=== PATIENT | female | born 1995 | race Caucasian/White ===

== ENCOUNTER → 2018-01-17 18:48 | Outpatient (CLI) | payer OTHER, SELFPAY ==
[2018-01-17 20:37] LABS: Chlamydia Trachomatis by PCR Negative (Negative); Neisserai gonorrhoeae by PCR Negative (Negative); Probe Check PASS; Sample Adequacy Control PASS; Specimen Processing Control PASS
[2018-01-20 12:25] LABS: HPV Reflexed? NOT INDICATED
== END ==
PROVIDERS: Visit Provider Obstetrics & Gynecology
DX: Z01.419 Encounter for gynecological examination (general) (routine) without abnormal findings (principal); Z12.4 Encounter for screening for malignant neoplasm of cervix
CPT/HCPCS: 87491; 87591; 88175; G0145

== ENCOUNTER → 2018-01-25 07:41 | Outpatient (CLI) | payer OTHER, SELFPAY ==
[2018-01-25 09:23] LABS: Insulin 11.9 mU/L (2.6-37.6); Progesterone Level 0.52 ng/mL (See Comment); Vitamin D,25 Hydroxy 19.2 ng/mL (29.95-100.01)
[2018-01-25 09:25] LABS: Estradiol 19.5 pg/mL; Glucose 88 mg/dL (74-106); Prolactin 10.5 ng/mL; Thyroid Stim Hormone (TSH) 1.39 uIU/mL (0.358-3.74)
[2018-01-26 04:09] LABS: DHEA Sulfate 334.4 ug/dL (110.0-431.7)
[2018-01-26 09:20] LABS: Sex Hormone-binding Globulin 47.5 nmol/L (24.6-122.0)
[2018-01-28 11:51] LABS: 17-Hydroxyprogesterone 36 ng/dL (.)
== END ==
PROVIDERS: Visit Provider Obstetrics & Gynecology
DX: L68.0 Hirsutism (principal)
CPT/HCPCS: 36415; 82306; 82533; 82627; 82670; 82947; 83001; 83498; 83525; 84144; 84146; 84270; 84403; 84439; 84443; 84480; 82626

== ENCOUNTER → 2018-03-17 15:57 | Outpatient (CLI) | payer OTHER, SELFPAY ==
[2018-03-17 17:16] LABS: Progesterone Level 6.51 ng/mL (See Comment)
== END ==
PROVIDERS: Visit Provider Obstetrics & Gynecology
DX: E28.2 Polycystic ovarian syndrome (principal)
CPT/HCPCS: 36415; 84144

== ENCOUNTER → 2018-07-03 09:55 | Outpatient (CLI) | payer OTHER, SELFPAY ==
[2018-07-03 13:54] LABS: Vitamin D,25 Hydroxy 48.1 ng/mL (29.95-100.01)
[2018-07-04 11:41] LABS: DHEA Sulfate 375.7 ug/dL (110.0-431.7)
== END ==
PROVIDERS: Visit Provider Obstetrics & Gynecology
DX: E28.2 Polycystic ovarian syndrome (principal); L68.0 Hirsutism
CPT/HCPCS: 36415; 82306; 82627; 82626

== ENCOUNTER → 2018-10-10 09:17 | Outpatient (CLI) | payer OTHER, SELFPAY ==
[2018-10-10 11:02] LABS: Insulin 6.1 mU/L (2.6-37.6); Progesterone Level 2.48 ng/mL (See Comment)
--- OUTSIDE RECORDS SUMMARY | 2018-12-12 10:03 | XMS RPT_ITS ---
:1995 Author Organization OHIP Support Name Relationship Address Phone ROSA NEFF/SHARRON Unavailable [address] + [place] [phone] [employer] Unavailable [address] + [address] Unavailable Unavailable Unavailable ROSA NEFF Unavailable Unavailable + AISHWARYAROSA HENDERSON Unavailable Unavailable + ROSA NEFF Unavailable Unavailable + NOT GIVEN Unavailable [address] + [place] [address] [facility] Unavailable Unavailable Unavailable ROSA NEFF Unavailable Unavailable + AISHWARYAROSA HENDERSON Unavailable Unavailable + AISHWARYAROSA/SHARRON Unavailable [address] + [place] [phone] [employer] Unavailable [address] + [place] [phone] ROSA NEFF/SHARRON Unavailable [address] + [place] [phone] [employer] Unavailable [address] + [place] [address] ROSA NEFF/SHARRON Unavailable [address] [phone] [place] [address] [employer] Unavailable [address] + [place] [address] AISHWARYAROSA HENDERSON/SHARRON Unavailable [address] + [place] [phone] [employer] Unavailable [address] + [place] [address] [facility] Unavailable Unavailable Unavailable ROSA NEFF Unavailable Unavailable + ROSA NEFF Unavailable Unavailable + Care Team Providers Name Role Phone Dr. Neema Potter Admitting Unavailable [place], Dr. Neema Oquendo Attending Unavailable ABBEY NEEMA LAKSHMI Attending Unavailable ABBEY NEEMA MARTINS Primary Care Unavailable ABBEY NEEMA MARTINS Attending Unavailable ABBEY NEEMA MARTINS Primary Care Unavailable TINA CHÁVEZ Attending Unavailable ABBEYNEEMA Primary Care Unavailable Singh-Ari, Summer Attending Unavailable Singh-Ari, Summer Attending Unavailable Singh-Ari, Summer Attending Unavailable Singh-Ari, Summer Referring Unavailable RADHA BEE Primary Care Unavailable Singh-Ari, Summer Attending Unavailable Singh-Ari, Summer Attending Unavailable PROBLEMS PROBLEMS DATE TYPE CONDITION / CODE ATTENDING STATUS SOURCE 09/04/2018 Admitting Obesity, NEEMA POTTER [facility] diagnosis unspecified / [place] E66.9(ICD-10) Repository 09/04/2018 Admitting Body mass index NEEMA POTTER [facility] diagnosis (bmi) 33.0-33.9, [place] adult / Repository Z68.33(ICD-10) 09/04/2018 Admitting Encounter for NEEMA POTTER [facility] diagnosis general adult [place] medical examination Repository without abnormal findings / Z00.00(ICD-10) 09/04/2018 Admitting Encounter for NEEMA POTTER [facility] diagnosis immunization / [place] Z23(ICD-10) Repository 07/03/2018 Unknown E28.2 - Polycystic Singh-Ari, Active [place] ovarian syndrome / [facility] E28.2(ICD-10) Hospital Repository 07/03/2018 Unknown L68.0 - Hirsutism / Singh-Ari, Active [place] L68.0(ICD-10) [facility] Hospital Repository 06/27/2018 Unknown Z01.419 - Encounter Singh-Ari, Active [place] for gynecological [facility] (general) (routine) Repository without abnormal findings / Z01.419(ICD-10) 12/26/2017 Admitting Dizziness and CRONEEMA SHAY [facility] diagnosis giddiness / [place] R42(ICD-10) Repository PROCEDURES PROCEDURES No Procedure Records FoundRESULTS RESULTS PROGESTERONE LEVEL Collected: 10/10/2018 Status: F Source: [place] 9:24 AM [facility] REPOSITORY TYPE CODE TESTS RESULT OUT OF REFERENCE UNITS RANGE LAB L509.4001 See Comment ng/mL Progesterone Normal 2.48 Result Comment: Progesterone Reference Table: UNITS Female: Follicular 0.15 - 1.40 ng/mL Luteal 3.34 - 25.56 ng/mL Mid-luteal 4.44 - 28.03 ng/mL Postmenopausal 0.0 - 0.73 ng/mL : 1st Trimester 11.22 - 90.00 ng/mL 2nd Trimester 25.55 - 89.40 ng/mL 3rd Trimester 48.40 -422.50 ng/mL Performed By: #### L509.4001, [id number] #### [facility] [address] [place], [place], [address] INSULIN Collected: 10/10/2018 Status: F Source: [place] 9:24 AM [facility] REPOSITORY TYPE CODE TESTS RESULT OUT OF RANGE REFERENCE UNITS LAB [id number] 2.6-37.6 mU/L Normal Insulin 6.1 Result Comment: Please Note: INSULIN METHOD AND REFERENCE RANGE CHANGE Effective 09/29/2017. Performed By: #### L509.4001, [id number] #### [place] [facility] [address] [place], [place], [address] VITAMIN D,25 HYDROXY Collected: 07/03/2018 Status: F Source: [place] 9:58 AM [facility] REPOSITORY TYPE CODE TESTS RESULT OUT OF RANGE REFERENCE UNITS LAB L506.1000 29.95-100.01 ng/mL Normal Vitamin D 48.1 25-OH Result Comment: Vitamin D 25(OH) Status Range Deficiency <20 ng/mL (50nmol/L) Insuffciency 20 - 30 ng/mL (50 - 75 nmol/L) Sufficiency 30 - 100 ng/mL (75 - 250 nmol/L) Toxicity >100 ng/mL (>250 nmol/L) Performed By: #### L506.1000 #### [facility] [address] [place], [address] DHEA SULFATE Collected: 07/03/2018 Status: F Source: [place] 9:58 AM [facility] REPOSITORY Order Comment: Has Patient had Radioactive Injection for X-ray?: N TYPE CODE TESTS RESULT OUT OF RANGE REFERENCE UNITS LAB L3300.1500 110.0-431.7 ug/dL Normal DHEA SULF 375.7 4020 Result Comment: Performed at: [facility] [id number] Table Cut Off Saw Operator: Nato Dick PhD, Phone: [phone] Performed By: #### L3300.1500 #### [facility] (refer to report for specific site) refer to report for address and phone number PROGESTERONE LEVEL Collected: 03/17/2018 Status: F Source: [place] 3:59 PM [facility] REPOSITORY Order Comment: TODAY IS CYCLE DAY 21 TYPE CODE TESTS RESULT OUT OF REFERENCE UNITS RANGE LAB L509.4001 See Comment ng/mL Progesterone Normal 6.51 Result Comment: Progesterone Reference Table: UNITS Female: Follicular 0.15 - 1.40 ng/mL Luteal 3.34 - 25.56 ng/mL Mid-luteal 4.44 - 28.03 ng/mL Postmenopausal 0.0 - 0.73 ng/mL : 1st Trimester 11.22 - 90.00 ng/mL 2nd Trimester 25.55 - 89.40 ng/mL 3rd Trimester 48.40 -422.50 ng/mL Performed By: #### L509.4001 #### [facility] [address] [facility]. [place], [place], [address] T3 TOTAL - TRIIODOTHYRONINE Collected: 01/25/2018 Status: F Source: [place] 7:56 AM [facility] REPOSITORY TYPE CODE TESTS RESULT OUT OF RANGE REFERENCE UNITS LAB L501.9186 0.6-1.81 ng/mL Normal T3 Total 1.30 Performed By: #### L501.9186, L506.1000, L509.3000, L509.4001, L509.6000, [id number] #### [facility] [address] [facility] [place], [address] VITAMIN D,25 HYDROXY Collected: 01/25/2018 Status: F Source: [place] 7:56 AM [facility] REPOSITORY TYPE CODE TESTS RESULT OUT OF REFERENCE UNITS RANGE LAB L506.1000 29.95-100.01 ng/mL Low Vitamin D 19.2 25-OH Result Comment: Vitamin D 25(OH) Status Range Deficiency <20 ng/mL (50nmol/L) Insuffciency 20 - 30 ng/mL (50 - 75 nmol/L) Sufficiency 30 - 100 ng/mL (75 - 250 nmol/L) Toxicity >100 ng/mL (>250 nmol/L) Performed By: #### L501.9186, L506.1000, L509.3000, L509.4001, L509.6000, [id number] #### [facility] [address] [place], [place], [address] TESTOSTERONE, SERUM TOTAL Collected: 01/25/2018 Status: F Source: [place] 7:56 [facility] REPOSITORY TYPE CODE TESTS RESULT OUT OF REFERENCE UNITS RANGE LAB L509.3000 ng/dL Testosterone Normal 23.71 Result Comment: NORMAL REFERENCE RANGES MALE AGE <50 123.06 - 813.86 ng/dL MALE AGE >50 89.98 - 780.10 ng/dL FEMALE PREMENOPAUSE AGE 21 - 60 9.01 - 47.94 ng/dL FEMALE POSTMENOPAUSE AGE 45 - 89 <7.00 - 45.62 ng/dL REFERENCE RANGE AND METHODOLOGY CHANGED 09/07/2017 Performed By: #### L501.9186, L506.1000, L509.3000, L509.4001, L509.6000, [id number] #### [facility] [address] [place], [address] PROGESTERONE LEVEL Collected: 01/25/2018 Status: F Source: [place] 7:56 [facility] REPOSITORY TYPE CODE TESTS RESULT OUT OF REFERENCE UNITS RANGE LAB L509.4001 See Comment ng/mL Progesterone Normal 0.52 Result Comment: Progesterone Reference Table: UNITS Female: Follicular 0.15 - 1.40 ng/mL Luteal 3.34 - 25.56 ng/mL Mid-luteal 4.44 - 28.03 ng/mL Postmenopausal 0.0 - 0.73 ng/mL : 1st Trimester 11.22 - 90.00 ng/mL 2nd Trimester 25.55 - 89.40 ng/mL 3rd Trimester 48.40 -422.50 ng/mL Performed By: #### L501.9186, L506.1000, L509.3000, L509.4001, L509.6000, [id number] #### [facility] [address] [place], [address] CORTISOL SERUM Collected: 01/25/2018 Status: F Source: [place] 7:56 AM [facility] REPOSITORY TYPE CODE TESTS RESULT OUT OF RANGE REFERENCE UNITS LAB L509.6000 3.09-22.40 ug/dL Normal CORTISOL 13.60 Result Comment: Adult (AM) 4.30 - 22.40 ug/dL Adult (PM) 3.09 - 16.66 ug/dL Performed By: #### L501.9186, L506.1000, L509.3000, L509.4001, L509.6000, [id number] #### [facility] [address] [place], [place], [address] INSULIN Collected: 01/25/2018 Status: F Source: [place] 7:56 AM [facility] REPOSITORY TYPE CODE TESTS RESULT OUT OF RANGE REFERENCE UNITS LAB [id number] 2.6-37.6 mU/L Normal Insulin 11.9 Result Comment: Please Note: INSULIN METHOD AND REFERENCE RANGE CHANGE Effective 09/29/2017. Performed By: #### L501.9186, L506.1000, L509.3000, L509.4001, L509.6000, [id number] #### [facility] [address] [place], [address] GLUCOSE Collected: 01/25/2018 Status: F Source: [place] 7:56 AM [facility] REPOSITORY TYPE CODE TESTS RESULT OUT OF RANGE REFERENCE UNITS LAB L501.0100 74-106 mg/dL Normal GLU 88 Result Comment: Please note revised GLUCOSE reference range effective 2017. Performed By: #### L501.0100, L501.9520, L506.0400, L3100.5125, L3100.5420, L3300.1750 #### [facility] [address] [place], [address] THYROID STIM HORMONE Collected: 01/25/2018 Status: F Source: [place] (TSH) 7:56 AM [facility] REPOSITORY TYPE CODE TESTS RESULT OUT OF RANGE REFERENCE UNITS LAB L501.9520 0.358-3.74 uIU/mL Normal TSH 1.39 Performed By: #### L501.0100, L501.9520, L506.0400, L3100.5125, L3100.5420, L3300.1750 #### [facility] [address] [place], [place], [address] T4 FREE DIRECT Collected: 01/25/2018 Status: F Source: [place] 7:56 AM [facility] REPOSITORY TYPE CODE TESTS RESULT OUT OF RANGE REFERENCE UNITS LAB L506.0400 0.76-1.46 ng/dL Normal T4 FREE 1.00 DIRECT Performed By: #### L501.0100, L501.9520, L506.0400, L3100.5125, L3100.5420, L3300.1750 #### [facility] [address] [place], [place], [address] FOLLICLE STIMULATING Collected: 01/25/2018 Status: F Source: [place] HORMONE 7:56 AM [facility] REPOSITORY TYPE CODE TESTS RESULT OUT OF RANGE REFERENCE UNITS LAB L3100.5125 mIU/mL Normal FSH 4.0 Result Comment: NORMAL REFERENCE RANGES FEMALE FOLLICULAR 2.3 - 12.6 mIU/mL MID-CYCLE PEAK 5.2 - 17.5 mIU/mL LUTEAL 1.7 - 12.9 mIU/mL POST-MENOPAUSAL ON MHT 5.9 - 72.8 mIU/mL NOT ON MHT 12.7 - 132.2 mlU/mL MALE 0.7 - 10.8 mIU/mL NEW TEST METHOD AND REFERENCE RANGES FEBRUARY 07, 2012 Performed By: #### L501.0100, L501.9520, L506.0400, L3100.5125, L3100.5420, L3300.1750 #### [facility] [address] [place], [address] PROLACTIN Collected: 01/25/2018 Status: F Source: [place] 7:56 AM [facility] REPOSITORY TYPE CODE TESTS RESULT OUT OF RANGE REFERENCE UNITS LAB L3100.5420 ng/mL Normal PROLACTIN 10.5 Result Comment: NORMAL REFERENCE RANGES FEMALE NON- 2.2 - 30.3 ng/mL 8.1 - 347.6 ng/mL POST-MENOPAUSAL 0.7 - 31.5 ng/mL MALE 2.5 - 17.4 ng/mL NEW TEST METHOD AND REFERENCE RANGES FEBRUARY 07, 2012 Performed By: #### L501.0100, L501.9520, L506.0400, L3100.5125, L3100.5420, L3300.1750 #### [facility] [address] [place], [place], [address] ESTRADIOL Collected: 01/25/2018 Status: F Source: [place] 7:56 AM [facility] REPOSITORY TYPE CODE TESTS RESULT OUT OF RANGE REFERENCE UNITS LAB L3300.1750 pg/mL Normal ESTRADIOL 19.5 Result Comment: NORMAL REFERENCE RANGES FEMALE FOLLICULAR 21.4 - 164.8 pg/mL MID-CYCLE PEAK 49.9 - 367.2 pg/mL LUTEAL 40.2 - 259.0 pg/mL POST-MENOPAUSAL ON MHT <11.0 - 462.1 pg/mL NOT ON MHT <11.0 - 58.3 pg/mL MALE <11.0 - 52.5 pg/mL NOTE: [facility] HAS CONFIRMED THE DRUG FULVETRANT (FASLODEX) MAY CAUSE FALSELY ELEVATED ESTRADIOL RESULTS WHEN USING THIS TEST METHOD. IF PATIENT IS TAKING FULVESTRANT AN ALTERNATIVE METHOD SHOULD BE USED TO DETERMINE ESTRADIOL CONCENTRATION. Performed By: #### L501.0100, L501.9520, L506.0400, L3100.5125, L3100.5420, L3300.1750 #### [facility] [address] [place], [place], [address] SEX HORMONE-BINDING Collected: 01/25/2018 Status: F Source: [place] GLOBULIN 7:56 AM [facility] REPOSITORY Order Comment: Has Patient had Radioactive Injection for X-ray?: N TYPE CODE TESTS RESULT OUT OF RANGE REFERENCE UNITS LAB L3100.5060 24.6-122.0 nmol/L Normal SHBG 47.5 Result Comment: Performed at: [facility] [address] [id number] Table Cut Off Saw Operator: Nato Dick PhD, Phone: [phone] Performed By: #### L3100.5060, L3300.1500 #### [facility] (refer to report for specific site) refer to report for address and phone number DHEA SULFATE Collected: 01/25/2018 Status: F Source: [place] 7:56 AM [facility] REPOSITORY Order Comment: Has Patient had Radioactive Injection for X-ray?: N TYPE CODE TESTS RESULT OUT OF RANGE REFERENCE UNITS LAB L3300.1500 110.0-431.7 ug/dL Normal DHEA SULF 334.4 4020 Performed By: #### L3100.5060, L3300.1500 #### [facility] (refer to report for specific site) refer to report for address and phone number [phone] Collected: Status: F Source: [place] 01/25/2018 7:56 AM [facility] REPOSITORY Order Comment: Has Patient had Radioactive Injection for X-ray?: N TYPE CODE TESTS RESULT OUT OF RANGE REFERENCE UNITS LAB L3100.9000 . ng/dL Normal HYDROXPROG 17 36 Result Comment: Adult Female Follicular 15 - 70 Luteal 35 - 290 This test was developed and its performance characteristics determined by [facility]. It has not been cleared or approved by the Food and Drug Administration. Performed at: [address] [id number] Table Cut Off Saw Operator: Dylan Kemp MD, Phone: [phone] Performed By: #### L3100.9000 #### [facility] (refer to report for specific site) refer to report for address and phone number CT/NG WCH BY PCR Collected: 01/17/2018 Status: F Source: [place] 4:00 PM [facility] REPOSITORY TYPE CODE TESTS RESULT OUT OF RANGE REFERENCE UNITS LAB L8200.2100 Negative Normal Chlam Negative Trac PCR LAB L8200.2200 Negative Normal NG by Negative PCR Performed By: #### L8200.1999 #### [facility] [address] [place], [address] PAP I-G W/RFX Collected: 01/17/2018 Status: F Source: [place] HRHPV-APTIMA 4:00 PM [facility] REPOSITORY Order Comment: CYTOLOGY INFORMATION: - CLINICAL INFORMATION: - DATE LMP/MENOPAUSE: LMP 12/22/17 - COLLECTION VIAL: Thin Prep Vial - PROCESSING ASSISTANT SOURCE: CERVICAL/ENDOCERVICAL - COLLECTION TECHNIQUE: BRUSH/SPATULA Specimen Comment: [id number] Specimen Comment: No. of containers..01 ThinPrep Vial TYPE CODE TESTS RESULT OUT OF RANGE REFERENCE UNITS LAB L7400.0800 . Normal DIAGN Comment Result Comment: NEGATIVE FOR INTRAEPITHELIAL LESION AND MALIGNANCY. LAB L7400.0900 . Normal ADEQ Comment Result Comment: Satisfactory for evaluation. Endocervical and/or squamous metaplastic cells (endocervical component) are present. LAB L7400.1400 . Normal PERFORM Comment Result Comment: Khoa Feliz Agricultural Service Technician (ASCP) LAB L7400.2575 . Normal TEST METHOD Comment Result Comment: This liquid based ThinPrep(R) pap test was screened with the use of an image guided system. LAB L7400.2600 . Normal . COMM LAB L7400.2700 . Normal PAPSMR Comment Result Comment: The Pap smear is a screening test designed to aid in the detection of premalignant and malignant conditions of the uterine cervix. It is not a diagnostic procedure and should not be used as the sole means of detecting cervical cancer. Both false-positive and false-negative reports do occur. LAB L7400.2800 . Normal HPV RFLX Comment Result Comment: The HPV DNA reflex criteria were not met with this specimen result therefore, no HPV testing was performed. Performed at: [facility] [id number] Table Cut Off Saw Operator: Stephanie Elena MD, Phone: [phone] Performed By: #### L7400.0353 #### [facility] (refer to report for specific site) refer to report for address and phone number ALLERGIES ALLERGIES DATE TYPE / CODE NAME / CODE REACTION SEVERITY SOURCE Drug NO KNOWN [facility] Class/35397 ALLERGIES Repository 1003(SNOMED CT) ENCOUNTERS ENCOUNTERS ADMIT/DISCHARGE ACCOUNT NUMBER ADMITTING ENCOUNTER LOCATION SOURCE CLASS 10/10/2018 [id number] Ambulatory [facility] ding:WOBLAB Repository 09/26/2018 [id number] Ambulatory Building:[facility] PCPWMAINST Three Repository 09/04/[id number] [place] Ambulatory [facility] Repository 09/04/2018/09/04/20 [id number] Ambulatory Building:[facility] [place] [address] PCPWMAINST Three Repository 07/03/2018 [id number] Ambulatory [facility] ding:WOBLAB Repository 03/17/2018 [id number] Ambulatory [facility] ding:WOBLAB Repository 01/25/2018 [id number] Ambulatory [facility] ding:LAB Repository 01/17/2018 [id number] [facility] ding:LABSPEC Repository 12/26/2017/12/27/19 [id number] Ambulatory Building:[place] [address] PCPSTRIMBLE Three Repository PAYERS PAYERS ENCOUNTER GUARANTOR PAYER SUBSCRIBER SOURCE 10/10/2018 BENNY Hoover Primary Rosa KinseyDOB: [place] [id number] TR Insurance:COMMERCIAL [id number] [address] [facility] [place], [place] [address]Qxu: [id number] Repository Date:2534-46-97BQ [address]OX ([address]) [address] [address]TU: 10/10/2018 Secondary NOT GIVENUNK [place] Insurance:SELF PAY [facility] Number: Effective Repository Date:2018-10-10 09/26/2018 BENNY NEFF Primary ROSA KINSEYDOB: [facility] IDOB: Insurance:OPTIMAPolic [id number] Three Repository TW y Number: [address] [id number] [address] [place] [address] Date:9781-96-09[place] [address] [place], [place] [address]Woh: [address] [address]WP: [phone]) (ZS) [phone] 09/04/2018 BENNY NEFF Primary ROSA KINSEYDOB: [facility] IDOB: Insurance:OPTIMAPolic [id number] Three Repository [facility] y Number: [address] RD RD [id number] [address] [place] [address] Date:3404-59-93VM [facility] [place] [address] , [place] [address]Oty: [address] [address]WP: [phone] 07/03/2018 BENNY I Primary Rosa KinseyDOB: [place] [id number] TR Insurance:COMMERCIAL [id number] [address] OTHERPolicy Number: [facility] , [place] [address]Qzm: [id number] Repository Date:2744-13-18QR [address]OX (HP) [address] [address]HN: 07/03/2018 Secondary NOT GIVENUNK [place] Insurance:SELF PAY [facility] Number: Effective Repository Date:2018-07-03 03/17/2018 BENNY I Primary Rosa KinseyDOB: [place] [id number] TR Insurance:COMMERCIAL [id number] [address] OTHERPolicy Number: [facility] , [place] [address]Psg: [id number] Repository Date:2290-27-11IQ [address] ([address]) [address] [address]BS: 03/17/2018 Secondary NOT GIVENUNK [place] Insurance:SELF PAY [facility] Number: Effective Repository Date:2018-03-17 01/25/2018 BENNY I Primary Rosa KinseyDOB: [place] [id number] TR Insurance:COMMERCIAL [id number] [address] [facility] , [place] [address]Qqg: [id number] Repository Date:6274-67-17RI [address] ([address]) [address] [place] [address]MQ: 01/25/2018 Secondary NOT GIVENUNK [place] Insurance:SELF PAY [facility] Number: Effective Repository Date:2018-01-25 01/17/2018 BENNY I Primary Rosa KinseyDOB: [place] [id number] TR Insurance:CBCA [id number] [address] , [place] [address]Bmk: NETWORKPolicy Number: Repository [id number] () Date:3580-38-50[address] [address], [place] [address]CB: 01/17/2018 Secondary Rosa KinseyDOB: [place] Insurance:COMMERCIAL [id number] [facility] OTHERPolicy Number: Hospital [id number] Repository Date:3020-40-16[address], [place] [address]RN: 01/17/2018 Tertiary NOT GIVENUNK [place] Insurance:SELF PAY [facility]: Effective Repository Date:2018-01-17 12/26/2017 BENNY AYERSEY [facility] IDOB: Insurance:OPTIMAPolic [id number] Three Repository TWP y Number: TWP RD RD [id number] [address] [place] [address] Date:4083-00-59FO [facility] [address] , [place] [id number], [place] [address]OG:
--- OUTSIDE RECORDS SUMMARY | 2018-12-12 10:03 | XMS RPT_ITS | Summary of Care ---
:1995 Author Organization [facility] Address [address] [place] [address] Care Team Providers Name Role Phone Gabriel Potter MD Primary Care Provider Reason for Visit Reason Comments other wellness Encounter Details Date Type Department Care Team Description 09/04/2018 Office Visit [facility] Primary Gabriel Potter Well adult exam (Primary Dx); Care Physicians MD Bobby Class 1 obesity without serious comorbidity with body mass index (BMI) of 33.0 to 33.9 in adult, unspecified obesity type; [address] [facility] [place] [id number] Allergies No Known Allergiesas of this encounter Medications Prescription Sig. Disp. Refills Start Date End Date Status meclizine Take 1 (one) tablet 60 tablet 1 12/26/2017 12/26/2018 Active (ANTIVERT) 12.5 mg (12.5 mg total) by tabletIndications: mouth 3 (three) Vertigo times a day as needed for nausea. ergocalciferol, Take 1,000 Units by Active vitamin D2, mouth . (VITAMIN D2 ORAL) diptheria, tetanus Sign this order in 1 mL 0 09/04/2018 09/04/2018 Active toxoid, acellular conjunction with pertusssis (ADACEL) the immunization 2 Lf-(2.5-5-3-5 order to satisfy [place] mcg)-5Lf/0.5 mL Board of Pharmacy injectionIndication Positive ID s: Need for Tdap requirements for vaccination immunization orders . as of this encounter Active Problems Problem Noted Date Obesity 09/04/2018 Last Assessment & Plan: Discussed elevated Body Mass Index (BMI): Advised regular exercise. Discussed elevated Body Mass Index (BMI): Advised healthy and appropriate diet. Rationale: Overweight (Findings) BMI Polycystic ovarian syndrome 07/03/2018 Vertigo 12/26/2017 Last Assessment & Plan: Monitor stress, try OTC decongestant, and use meclizine as needed for symptom control. Anxiety State 03/02/2013 Overview: Overview: This term is a replacement for an inactive term Immunizations Name Dates Previously Given Next Due DTaP 03/15/2001, 05/29/1997, 05/30/1996, 03/28/1996, 01/25/1996 HPV Quadrivalent (Gardasil) 11/21/2009, 05/28/2009, 03/27/2009 Hepatitis B 11/07/1996, 01/25/1996, 1995 Hib (PRP-T) 03/27/1997, 05/30/1996, 03/28/1996, 01/25/1996 Influenza, Unspecified 05/28/2009 MMR 03/15/2001, 03/27/1997 Meningococcal Conjugate (MENACTRA) 03/02/2013, 03/27/2009 OPV 03/15/2001, 05/30/1996, 03/28/1996, 01/25/1996 Tdap 09/04/2018, 04/26/2008 Varicella (Varivax) 03/02/2013, 05/29/1997 as of this encounter Social History Tobacco Use Types Packs/Day Years Used Date Never Smoker Smokeless Tobacco: Never Used Alcohol Use Drinks/Week oz/Week Comments Yes 4x a year Sex Assigned at Date Recorded Not on file as of this encounter Last Filed Vital Signs Vital Sign Reading Time Taken Blood Pressure 123/76 09/04/2018 8:02 AM EST Pulse 56 09/04/2018 8:02 AM EST Temperature 36.8 ??C (98.2 ??F) 09/04/2018 8:02 AM EST Respiratory Rate - - Oxygen Saturation 99% 09/04/2018 8:02 AM EST Inhaled Oxygen Concentration - - Weight 92.7 kg (204 lb 6.4 oz) 09/04/2018 8:02 AM EST Height 166.4 cm (5' 5.5) 09/04/2018 8:02 AM EST Body Mass Index 33.5 09/04/2018 8:02 AM EST in this encounter Instructions Patient Instructions - Gabriel Potter MD - 09/04/2018 8:11 AM EST Formatting of this note may be different from the original. Problem List Items Addressed This Visit Unprioritized Obesity Discussed elevated Body Mass Index (BMI): Advised regular exercise. Discussed elevated Body Mass Index (BMI): Advised healthy and appropriate diet. Rationale: Overweight (Findings) BMI Other Visit Diagnoses Well adult exam - Primary Need for Tdap vaccination Relevant Medications diptheria, tetanus toxoid, acellular pertusssis (ADACEL) 2 Lf-(2.5-5-3-5 mcg)- 5Lf/0.5 mL injection Other Relevant Orders Tdap vaccine greater than or equal to 7yo IM in this encounter Progress Notes Gabriel Potter MD - 09/04/2018 8:10 AM ESTFormatting of this note may be different from the original. OUTPATIENT WELL WOMAN PROGRESS NOTE Subjective: Zahra Munoz is a 22 y.o. female and is here for a preventative care visit. Health Maintenance Due Topic Date Due ??? PAP SMEAR 1995 ??? TETANUS EVERY 10 YR 04/26/2018 ??? SEQUENTIAL INFLUENZA VACCINE (1) 05/20/2018 Last PAP Smear this year. - Done at OB in [place] Domestic violence: Feels safe, no concerns Depression Screen: Some, not really though. Diet/Exercise: Doing crossfit 4x a week, does skim milk, watches carb intake, no fast food or greasystuff, watches fruit and sugar intake Last eye exam: summer WN Last dental visit: Today, not been yet, goes biannually The following portions of the patient's history were reviewed and updated as appropriate: allergies,current medications, past family history, past medical history, past social history, past surgical history and problem list. Past Medical History: Diagnosis Date ??? PCOS (polycystic ovarian syndrome) Past Surgical History: Procedure Laterality Date ??? ANKLE SURGERY Right 2008 ??? WISDOM TOOTH EXTRACTION Social History Substance Use Topics ??? Smoking status: Never Smoker ??? Smokeless tobacco: Never Used ??? Alcohol use Yes Comment: 4x a year Family History Problem Relation Age of Onset ??? Cancer Paternal Aunt ??? Cancer Paternal Grandmother No Known Allergies Objective: BP 123/76 (BP Location: Left arm, Patient Position: Sitting, BP Cuff Size: Adult) Pulse (!) 56 Temp 98.2 ??F (36.8 ??C) (Oral) Ht 5' 5.5 Wt 92.7 kg (204 lb 6.4 oz) SpO2 99% BMI 33.50 kg/m?? Assessment: Healthy female exam.@ Plan: Problem List Items Addressed This Visit Unprioritized Obesity Discussed elevated Body Mass Index (BMI): Advised regular exercise. Discussed elevated Body Mass Index (BMI): Advised healthy and appropriate diet. Rationale: Overweight (Findings) BMI Other Visit Diagnoses Well adult exam - Primary General Patient Counseling Given: --Nutrition: Stressed importance of moderation in sodium/caffeine intake, saturated fat and cholesterol, caloric balance, sufficient intake of fresh fruits, vegetables, fiber, calcium, iron, and 1 mg of folate supplement per day (for females capable of ). --Discussed the daily use of baby aspirin. --Exercise: Stressed the importance of regular exercise. --Substance Abuse: Discussed cessation/primary prevention of tobacco, alcohol, or other drug use --Sexuality: Discussed sexually transmitted diseases, partner selection, use of condoms, avoidance of unintended and contraceptive alternatives. --Dental health: Discussed importance of regular dental visits. --Immunizations reviewed. --Discussed benefits of screening mammograms, pap smears, and colonoscopy. in this encounter Miscellaneous Notes Assessment & Plan Note - Gabriel Potter MD - 09/04/2018 8:26 AM ESTAssociated Problem(s): ObesityDiscussed elevated Body Mass Index (BMI): Advised regular exercise. Discussed elevated Body Mass Index (BMI): Advised healthy and appropriate diet. Rationale: Overweight (Findings) BMI in this encounter Plan of Treatment Upcoming Encounters Date Type Specialty Care Team Description 09/04/2019 Office Visit Primary Care Gabriel Potter MD [address] [place] [id number] [phone] Health Maintenance Due Date Last Done Comments PAP SMEAR 1995 TETANUS EVERY 10 YR 04/26/2018 04/26/2008 SEQUENTIAL INFLUENZA VACCINE (#1) 2018 05/28/2009 HPV VACCINES Completed 11/21/2009, 05/28/2009, 03/27/2009 as of this encounter Visit Diagnoses Diagnosis Well adult exam - Primary Routine general medical examination at a health care facility Class 1 obesity without serious comorbidity with body mass index (BMI) of 33.0 to 33.9 in adult, unspecified obesity type Need for Tdap vaccination Need for prophylactic vaccination with combined dregxmjyrf-djiclmr-mnefugzwm (DTP) vaccine
== END ==
PROVIDERS: Visit Provider Obstetrics & Gynecology
DX: L68.0 Hirsutism (principal)
CPT/HCPCS: 36415; 83525; 84144

== ENCOUNTER → 2019-04-27 14:02 | Outpatient (CLI) | payer OTHER, SELFPAY ==
[2019-04-27 14:14] LABS: Hematocrit 40.7 % (37-47); Hemoglobin 14.1 g/dL (12.0-15.0); Mean Corp Hgb Conc 34.6 g/dL (32-36); Mean Corpuscular Volume 92.3 fL (81-99); Platelet Count 280 K/mm3 (150-450); RBC Distribution Width CV 11.9 % (11.6-14.6); RBC Distribution Width SD 40.6 fl (35.1-43.9); Red Blood Count 4.41 M/mm3 (4.2-5.4); White Blood Count 5.8 K/mm3 (4.4-11.0)
[2019-04-27 14:24] LABS: ALB/GLOB Ratio 1.3 RATIO (0.9-2.4); AST(SGOT) 11 U/L (15-37); Alanine Aminotransfer ALT/SGPT 18 U/L (13-56); Albumin, Serum 4.2 g/dL (3.2-5.0); Alkaline Phosphatase 58 U/L (45-117); Anion Gap 5 (5-15); BUN 8 mg/dL (7-18); BUN/Creat Ratio 11.9 RATIO (10-20); Calcium,Total 9.1 mg/dL (8.5-10.1); Chloride 105 mmol/L (98-107); Creatinine, Serum 0.67 mg/dL (0.55-1.02); EST Glomerular Filtration Rate 115 mL/min (>60); Est Glom Filt Rate - Afr Amer 139 mL/min (>60); Globulin 3.2 g/dL (2.2-4.2); Glucose 90 mg/dL (74-106); Potassium 4.4 mmol/L (3.5-5.1); Protein, Total 7.4 g/dL (6.4-8.2); Sodium Level 139 mmol/L (136-145)
[2019-04-27 14:27] LABS: hCG Titer Quant., Serum 732 mIU/mL (1-3)
[2019-04-27 14:38] LABS: Progesterone Level 14.57 ng/mL (See Comment)
[2019-04-27 15:43] LABS: Chlamydia Trachomatis by PCR Negative (Negative); Neisserai gonorrhoeae by PCR Negative (Negative); Probe Check PASS; Sample Adequacy Control PASS; Specimen Processing Control PASS
== END ==
PROVIDERS: Visit Provider Obstetrics & Gynecology
DX: Z11.3 Encounter for screening for infections with a predominantly sexual mode of transmission (principal); Z32.01 Encounter for pregnancy test, result positive
CPT/HCPCS: 80053; 84144; 84702; 85027; 87491; 87591

== ENCOUNTER → 2019-04-29 10:31 | Outpatient (CLI) | payer OTHER, SELFPAY ==
[2019-04-29 11:34] LABS: hCG Titer Quant., Serum 948 mIU/mL (1-3)
== END ==
PROVIDERS: Visit Provider Obstetrics & Gynecology
DX: N91.2 Amenorrhea, unspecified (principal)
CPT/HCPCS: 36415; 84702

== ENCOUNTER → 2019-05-01 11:32 | Outpatient (CLI) | payer OTHER, SELFPAY ==
[2019-05-01 13:21] LABS: hCG Titer Quant., Serum 1147 mIU/mL (1-3)
== END ==
PROVIDERS: Referring Provider Obstetrics & Gynecology; Visit Provider Obstetrics & Gynecology
DX: N91.2 Amenorrhea, unspecified (principal)
CPT/HCPCS: 36415; 84702

== ENCOUNTER → 2019-05-14 13:27 | Outpatient (CLI) | payer OTHER, SELFPAY ==
[2019-05-14 14:51] LABS: Progesterone Level 5.94 ng/mL (See Comment)
== END ==
PROVIDERS: Visit Provider Obstetrics & Gynecology
DX: O02.81 Inappropriate change in quantitative human chorionic gonadotropin (hCG) in early pregnancy (principal)
CPT/HCPCS: 84144

== ENCOUNTER → 2019-05-22 09:17 | Outpatient (CLI) | payer OTHER, SELFPAY ==
[2019-05-22 09:22] LABS: Red Blood Cells-Urine 0 SEEN /hpf (0-5); White Blood Cells 0 SEEN /hpf (0-5)
[2019-05-22 10:36] LABS: Color, Urine Yellow (Yellow); Glucose, Dipstick Normal (Normal); Ketone-Dipstick Negative (Negative); Leukocyte Esterase-Dipstick Negative /ul (Negative); Nitrite-Dipstick Negative (Negative); Occult Blood-Urine Negative /ul (Negative); Protein-Dipstick Negative (Negative); Urine Bilirubin Dipstick Negative (Negative); Urine Clarity Sl. Cloudy (Clear); Urine Urobilinogen Normal (Normal)
[2019-05-22 10:44] LABS: Bacteria 1+ /hpf (None Seen); Mucous, Urine 1+ /hpf (<or=2+); Squamous Epithelial Cells - UA 0-5 SEEN /hpf (5-10)
[2019-05-22 10:58] LABS: Progesterone Level 7.24 ng/mL (See Comment)
== END ==
PROVIDERS: Visit Provider Obstetrics & Gynecology
DX: Z34.81 Encounter for supervision of other normal pregnancy, first trimester (principal); N39.0 Urinary tract infection, site not specified; R89.1 Abnormal level of hormones in specimens from other organs, systems and tissues
CPT/HCPCS: 36415; 81001; 84144; 87086

== ENCOUNTER → 2019-05-29 10:32 | Outpatient (CLI) | payer OTHER, SELFPAY ==
[2019-05-29 13:40] LABS: Color, Urine Yellow (Yellow); Glucose, Dipstick Normal (Normal); Ketone-Dipstick Negative (Negative); Leukocyte Esterase-Dipstick Negative /ul (Negative); Nitrite-Dipstick Negative (Negative); Occult Blood-Urine Negative /ul (Negative); Protein-Dipstick Negative (Negative); Specific Gravity, Urine 1.015 (1.002-1.030); Urine Bilirubin Dipstick Negative (Negative); Urine Clarity Sl. Cloudy (Clear); Urine Urobilinogen Normal (Normal)
[2019-05-29 13:45] LABS: Absolute Lymphocyte Count 1.69 X10^3/uL (0.83-4.51); Absolute Neutrophil Count 4.8 X10^3/uL (2.0-7.7); Basophil# 0.05 X10^3/uL; Basophil% 0.7 % (0-1); Eosinophils% 1.4 % (0-5); Hemoglobin 13.5 g/dL (12.0-15.0); Lymphocyte # 1.69 X10^3/ul (4.0); Lymphocyte % 23.4 % (19-41); Mean Corp Hgb Conc 34.6 g/dL (32-36); Mean Corpuscular Volume 89.7 fL (81-99); Mean Platelet Vol. 9.8 fl (6.2-12.0); Monocyte% 8.3 % (0-10); NRBC Flagged by Analyzer 0 % (0-5); Neutrophil # 4.76 X10^3/uL (2.7-7.7); Neutrophil % 65.8 % (47-70); Platelet Count 292 K/mm3 (150-450); RBC Distribution Width CV 11.4 % (11.6-14.6); RBC Distribution Width SD 37.3 fl (35.1-43.9); Red Blood Count 4.35 M/mm3 (4.2-5.4); White Blood Count 7.2 K/mm3 (4.4-11.0)
[2019-05-29 13:54] LABS: Amphetamine Urine VISTA NEGATIVE (<1000 ng/mL); Barbiturate Urine VISTA NEGATIVE (< 200 ng/mL); Benzodiazepine Urine VISTA NEGATIVE (< 200 ng/mL); Cocaine Urine VISTA NEGATIVE (< 300 ng/mL); Ecstacy Urine VISTA NEGATIVE (< 500 ng/mL); Methadone Urine VISTA NEGATIVE (< 300 ng/mL); PCP Urine VISTA NEGATIVE (< 25 ng/mL); THC Urine VISTA NEGATIVE (< 50 ng/mL); Vista UDS pH Range 7
[2019-05-29 13:59] LABS: Thyroid Stim Hormone (TSH) 0.97 uIU/mL (0.358-3.74)
[2019-05-29 14:44] LABS: HIV - WCH Non-Reactive (Nonreactive); Hepatitis B Surface Antigen Non-Reactive (Nonreactive); Hepatitis C Antibody Non-Reactive (Nonreactive); Progesterone Level 59.85 ng/mL (See Comment); Rubella IgG 303.1 IU/mL; Vitamin D,25 Hydroxy 21.7 ng/mL (29.95-100.01)
[2019-06-01 01:45] LABS: Prenatal RPR NONREACTIVE (NONREACTIVE)
== END ==
PROVIDERS: Visit Provider Obstetrics & Gynecology
DX: O99.281 Endocrine, nutritional and metabolic diseases complicating pregnancy, first trimester (principal); E28.9 Ovarian dysfunction, unspecified; Z3A.00 Weeks of gestation of pregnancy not specified
CPT/HCPCS: 36415; 80307; 81002; 82306; 84144; 84443; 84703; 85025; 86703; 86762; 86803; 87340

== ENCOUNTER → 2019-06-06 09:20 | Outpatient (CLI) | payer OTHER, SELFPAY ==
[2019-06-06 10:11] LABS: Progesterone Level 23.51 ng/mL (See Comment)
== END ==
PROVIDERS: Visit Provider Obstetrics & Gynecology
DX: Z34.81 Encounter for supervision of other normal pregnancy, first trimester (principal); O02.81 Inappropriate change in quantitative human chorionic gonadotropin (hCG) in early pregnancy; Z3A.00 Weeks of gestation of pregnancy not specified
CPT/HCPCS: 36415; 84144

== ENCOUNTER → 2019-06-11 17:46 | Outpatient (CLI) | payer OTHER, SELFPAY ==
[2019-06-11 18:24] LABS: Progesterone Level 11.12 ng/mL (See Comment)
== END ==
PROVIDERS: Referring Provider Obstetrics & Gynecology; Visit Provider Obstetrics & Gynecology
DX: O03.9 Complete or unspecified spontaneous abortion without complication (principal); O02.81 Inappropriate change in quantitative human chorionic gonadotropin (hCG) in early pregnancy
CPT/HCPCS: 84144

== ENCOUNTER 2019-06-20 05:55 | Day surgery (SDC) | payer OTHER, SELFPAY ==
[2019-06-19 16:42] LABS: International Normalized Ratio 1.1
[2019-06-19 16:43] LABS: Partial Thromboplast Time 27.4 Seconds (24.1-36.2)
--- NOTE | 2019-06-19 21:53 | HP.PCM_ITS ---
- Problem List (1) Missed with demise before 20 completed weeks of gestation Status: Acute History and Physical Date of Admission: 06/20/19 Surgical History and Physical Date: 06/18/2019 Name: ZAHRA NEFF Age: 23 Date of : 1995 Zahra Neff, a 23 year old female 0 0 1 0 0 at 11 5/7 wga (PADMINI 01/03/20) presents for Suction dilation and curettage on June 20, 2019 at 7:30. --Diagnosed with missed Ab last week. Reported spotting without bleeding or abdominal pain. 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 Hospitalizations - see surgery Review of Systems: GENERAL - Denies fever, or chills SKIN - Denies skin changes EYES - wears eye glasses EARS - Denies difficulty hearing NOSE - Denies nasal congestion or bleeding MOUTH - Denies sore throat or difficulty swallowing NECK - Denies pain or swelling RESPIRATORY - Denies shortness of breath or wheezing CARDIOVASCULAR - Denies palpitations or chest pain GASTROINTESTINAL - Denies nausea, vomiting, diarrhea, constipation GENITOURINARY - Denies dysuria, frequency of urination, incontinence of urine MUSCULOSKELETAL - Denies joint or muscle pain NEUROLOGICAL - Denies localized numbness or weakness PSYCHIATRIC - Denies depression or anxiety ENDOCRINE - Denies heat or cold intolerance, weight loss or gain HEMATO-IMMUNOLOGIC - Denies excesive bleeding with cuts SOCIAL HISTORY: Alcohol Use - RARELY not while Smoking - Never Diet - limits dairy, red meats, low sugar, gluten free Lifestyle - Has SO Exercise - Was going to [employer] 5x week. Active on farm. 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 Illicit Drug Use - denies use of street drugs Sexual Activity - single sexual partner Residence - lives with SO Place of - [place] Hours Worked - 40+ Spouse-Sig Other Name - [place] Spouse-Sig Other Occupation - [employer] Spouse-Sig Other Phone No - [phone] Control - FAMILY HISTORY: MENSTRUAL HISTORY: LMP Known?- DefiniteAmount/Duration - 6 days, Regularity - regular, Frequency - monthly days, LMP - 03/13/19, Age Onset Menarche - 10 PAST PREGNANCIES: Total Pregnancies - 2; Full Term Pregnancies - 0; Premature - 0; Abortions, Induced - 0; Abortions, Spontaneous - 1; Ectopics - 0; Multiple Births - 0; Living Children - 0 SURGICAL HISTORY: 1. reconstruction of Rt ankle 2008 ; - 2. [place] Teeth Removal ; - PHYSICAL EXAM BP- 120/66 Sitting, Right arm, large cuff Weight- 215.32202 lbs Height- 65 inch BMI:35.85 CONSTITUTIONAL - NAD, well nourished, and well developed SKIN - No rash, lesions, or ulcers HEENT - normocephalic, atraumatic, sclerae anicteric LUNGS - normal respiratory rate and rhythm NEUROLOGICAL - normal gait, normal balance, normal motor PSYCHIATRIC - A and O to time, place, person, mood and affect Laboratory Tests 06/19/19 06/19/19 Range/Units 15:24 15:24 PT 14.0 (11.7-14.9) SECONDS INR 1.1 APTT 27.4 (24.1-36.2) Seconds Blood Type B POSITIVE Antibody Screen NEGATIVE ASSESSMENT/PLAN: 1. Missed US with 9w IUP without heartbeat Proceed with suction dilation and curettage as planned Procedural consents signed and reviewed at length in office NPO @ [place] prior to procedure H/H 13.5/39.0 on 05/29/19 Anora genetic testing planned
--- NOTE | 2019-06-20 | POC_PTH ---
PATIENT: BENNY CASTILLO LOC: [facility] U#:[id number] AGE/SX: 23/ ROOM: RE06/20/[address]: Dr. Marie Chapman MD : 1995 BED: DIS: 06/20/2019 SPEC #: [id number] RECD: 06/20/19 13:55 STATUS: BLAIRE THANIA #: [id number] LUZ MARIA: 06/20/19 00:[address]: Marie Cordero DEPT: SURGICAL PATHOLOGY RECD BY: Didier Tavarez ENTERED: 06/20/19 13:56 SP TYPE: PROD CONC OTHR DR: Out of [facility] Doctor Tissues: Product of conception, NOS Procedures: Surgery Specimen Level IV HEADER OPERATION: Dilation and curettage, suction PRE-OP DIAGNOSIS: Missed TISSUE SUBMITTED: Products of conception MICROSCOPIC DIAGNOSIS Endometrium, curettage: Chorionic villi, decidualized stroma and trophoblastic cells consistent with products of conception. AM:mary 06/21/19 MICROSCOPIC DESCRIPTION Slides are reviewed. GROSS DESCRIPTION Received is one container labeled with the patient's name and not further designated. The specimen consists of multiple pieces of pink soft tissue consistent with portion of small placental tissue that in aggregate measure 5 x 3 x 0.5 cm. tissue is not identified. The entire specimen is submitted in three cassettes. A section of the tissue is also submitted for chromosomal studies (Anora) by Dr. Rayo. 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 The duplication and deletion were derived from the maternal copies of the chromosomes. Due to the mosaicism, parental origin of the mosaic deletion could not be ascertained. Imbalances of this size have been previously reported in miscarriage and can be incompatible with survival or result in liveborn children with multiple congenital abnormalities. Parental high resolution to chromosome analysis with possible FISH studies are recommended to rule out balanced chromosome rearrangement carrier status. Array-based analysis of parental chromosomes is unable to rule out a balanced rearrangement. [facility] does not perform parental testing, but these studies can be ordered from an outside laboratory. We recommend providing a copy of this report to the laboratory performing the parental testing. Genetic counseling is recommended to discuss the significance of this result. Referral to a local genetic counselor may be considered. Please see complete above mentioned report in EMR
[2019-06-20 06:45] VITALS: BP 141/64; PULSE 60; RESP 16; TEMP 36.8; O2SAT 97; BMI 33.5
[2019-06-20] MEDS: Lactated Ringers 1,000 ML 125 ML IV (06:55)
--- NOTE | 2019-06-20 08:02 | PCM.PN.BLA ---
Progress Note Zahra presents for scheduled dilation and curettage at 11 6/7 weeks gestational age for missed measuring 9w at recent US. She reports having had heavy bleeding and cramping for approximately 4-5 hours with passage of blood clots yesterday evening starting around 6pm. She reports bleeding is now moderate and cramping resolved. Denies lightheadedness, shortness of breath or palpitations. She feels physically well otherwise. She brought in some of the products passed overnight but believes the fetus passed but was not collected. Vital Signs Temp Pulse Resp BP Pulse Ox 06/20/19 06:45 98.3 F 60 16 141/64 H 97 GEN - NAD, AAO x 3 ABD - soft, nontender, nondistended EXT - no calf tenderness NEURO - no gross motor deficits PSYCH - appropriate mood and affect - moderate blood on pad, speculum exam deferred Bedside TAUS performed with heterogenous components noted in endometrium. TVUS performed with heterogenous density suspicious for clot. Products of conception examined with gestational sac present. A/P: 23yo s/p likely completed Ab, small potential for retained products. -US findings reviewed with patient. Discussed medical management with cytotec including review of potential side effects versus proceed with dilation and curettage as scheduled given small possibility for need for D&C. Clinically, pt hemodynamically stable, no concerns for bleeding or infection. Following discussion, pt opts for medical management. -Rx Cytotec -Will d/c to home -f/u in office in 1-2 weeks -Bleeding, infection precautions reviewed. -Patient given opportunity to ask questions and questions answered to her satisfaction. -POCs sent for Anora testing given recurrent SAB.
--- NOTE | 2019-06-20 08:12 | DCINST_ITS ---
- Discharge Diagnoses Current Active Problems: Miscarriage Reason(s) for Visit for Discharge Instructions: Miscarriage You will use the following diet at home:: No restrictions Your food should be the consistency of: Regular Discharge Activity: Return to Normal Activity, May Shower, May Take a Tub Bath, - Return to work on:: 06/20/19 May resume sexual activity in: - - 2-4 weeks Call your doctor if you observe: Fever of 101 or Higher, Using more than one pad per hour, Shortness of breath, Chest pain, Calf discomfort, Uncontrolled pain Additional Dressing/Incision Instructions:: Avoid the following medications: Ibuprofen (Motrin/Advil), Naproxen (Aleve). You may take Tylenol over the counter as needed for pain. You use a heat pack for cramping. Allergies/Adverse Reactions: Allergies No Known Allergies Allergy (Verified 06/18/19 15:42) Medications to take at Discharge Cholecalciferol (Vitamin D3) [Vitamin D3] 4,000 unit PO DAILY 06/18/19 Multivitamin [Multiple Vitamins] 1 ea PO DAILY 06/18/19 Misoprostol 800 mcg BUCCAL X1 #4 tab 06/20/19 The following prescriptions were given: Misoprostol 800 mcg BUCCAL X1 #4 tab Prescription Printed Primary Care Physician: NEEMA KOLB [Other] Test Results: Test results from this visit will be discussed in further detail at your follow- up appointment, if applicable. Please Follow Up With: Marie Melgar MD When: 1-2 weeks
[2019-06-21 14:45] LABS: Pathology Specimen OB SEE PATHOLOGY REPORT
== END 2019-06-20 08:22 | disposition home or self-care (01) ==
LOC: SDC 05:58 → AC 05:59
PROVIDERS: Referring Provider Obstetrics & Gynecology; Visit Provider Obstetrics & Gynecology
DX: O03.4 Incomplete spontaneous abortion without complication (principal)
CPT/HCPCS: 36415; 85610; 85730; 86850; 86900; 86901; 88305; J7120; J2405

== ENCOUNTER → 2020-04-09 09:49 | Outpatient (CLI) | payer OTHER, SELFPAY ==
[2020-04-09 11:26] LABS: Hemoglobin A1c 5.2 % (3.8-5.6)
[2020-04-09 14:06] LABS: Vitamin D,25 Hydroxy 39.7 ng/mL
== END ==
PROVIDERS: Visit Provider Obstetrics & Gynecology
DX: E56.9 Vitamin deficiency, unspecified (principal); E28.2 Polycystic ovarian syndrome
CPT/HCPCS: 36415; 82306; 83036

== ENCOUNTER → 2020-11-08 15:09 | Outpatient (CLI) | payer OTHER, SELFPAY | PROVIDERS: Visit Provider Internal Medicine Infectious Disease | DX: Z11.59 Encounter for screening for other viral diseases (principal) | CPT/HCPCS: 87635; U0002 ==

== ENCOUNTER → 2021-05-19 09:31 | Outpatient (CLI) | payer OTHER, SELFPAY ==
[2021-05-19 11:29] LABS: Vitamin D,25 Hydroxy 42.9 ng/mL
[2021-05-22 13:15] LABS: HPV Reflexed? NOT INDICATED
== END ==
PROVIDERS: Visit Provider Obstetrics & Gynecology
DX: Z12.4 Encounter for screening for malignant neoplasm of cervix (principal); E55.9 Vitamin D deficiency, unspecified; E28.2 Polycystic ovarian syndrome; R73.09 Other abnormal glucose
CPT/HCPCS: 36415; 82306; 83036; 88175; G0145

== ENCOUNTER → 2021-05-27 14:21 | Outpatient (CLI) | payer OTHER, SELFPAY ==
--- NOTE | 2021-05-27 14:23 | BI_ITS ---
MAMMOGRAPHY - BILATERAL DIAGNOSTIC REASON FOR EXAM: Female, 25 years old. One week history of left breast lump. PERTINENT HISTORY: Non-contributory. TECHNIQUE: Digital bilateral breast suzan (3D mammographic acquisition) in the CC and MLO projections. 2-D mediolateral oblique (MLO) and craniocaudad (CC) views of both breasts were obtained. CAD: Full Field Digital Mammography with Computer Added Detection was performed. COMPARISON: None. Baseline examination. FINDINGS: Breast Composition: The breasts are heterogeneously dense, which may obscure small masses. There are no dominant masses or suspicious calcifications. No other significant abnormalities are identified. BI/DIAG MAMM W/CAD, BILAT IMPRESSION: Negative diagnostic mammogram. With the patient''s history of a left breast lump, correlation with ultrasound is recommended. ASSESSMENT CATEGORY: BIRADS Category 0: Incomplete. Need additional imaging evaluation. A letter regarding these results will be sent to the patient by the facility within 30 days. Approximately 10% of breast cancers are not detected by mammography. A normal mammogram should not delay biopsy of a clinically suspicious abnormality. Electronically Signed: Rocky Marie MD at 15:22 EDT , Service support ,
--- NOTE | 2021-05-27 14:23 | US_ITS ---
STUDY: ULTRASOUND BREAST - LEFT REASON FOR EXAM: Female, 25 years old. Palpable lump left breast. TECHNIQUE: Axial and longitudinal images of the LEFT breast were performed with a high resolution ultrasound transducer. # OF IMAGES: 18 COMPARISON: Comparison is made with prior mammogram done earlier today. FINDINGS: LEFT Breast: The axillary region of the left breast was examined. The palpable abnormality corresponds to a 1.5 cm x 0.5 cm x 0.5 cm benign appearing lymph node. US/Breast Limited Unilateral IMPRESSION: The palpable abnormality corresponds to a 1.5 cm x 0.5 cm x 0.5 cm benign appearing lymph node. ASSESSMENT CATEGORY: BIRADS Category 2: Benign. A letter regarding these results will be sent to the patient by the facility within 30 days. Electronically Signed: Rocky Marie MD at 15:45 EDT , Service support ,
== END ==
PROVIDERS: Referring Provider Obstetrics & Gynecology; Visit Provider Obstetrics & Gynecology
DX: N63.21 Unspecified lump in the left breast, upper outer quadrant (principal)
CPT/HCPCS: 76642; 77062; 77066; G0279

== ENCOUNTER → 2023-08-30 | Outpatient (CLI) | payer BC, SELFPAY ==
[2023-09-02 15:41] LABS: HPV Reflexed? NOT INDICATED
== END | disposition home or self-care (01) ==
LOC: LABSPEC 10:32
PROVIDERS: Referring Provider Obstetrics & Gynecology; Visit Provider Obstetrics & Gynecology
DX: Z12.4 Encounter for screening for malignant neoplasm of cervix (principal)
CPT/HCPCS: 88175; G0145

== ENCOUNTER → 2023-09-07 | Outpatient (CLI) | payer BC, SELFPAY ==
[2023-09-07 10:05] LABS: Absolute Lymphocyte Count 1.76 X10^3/uL (0.83-4.51); Absolute Neutrophil Count 3.4 X10^3/uL (2.0-7.7); Basophil# 0.06 X10^3/uL; Eosinophil# 0.21 X10^3/uL; Eosinophils% 3.5 % (0-5); Hematocrit 42.3 % (37-47); Lymphocyte # 1.76 X10^3/ul (0.83-4.51); Lymphocyte % 29.6 % (19-41); Mean Corp Hgb Conc 33.1 g/dL (32-36); Mean Corpuscular Hgb 29.9 pg (27.0-32.0); Mean Corpuscular Volume 90.4 fL (81-99); Mean Platelet Vol. 9.9 fl (6.2-12.0); Monocyte# 0.49 X10^3/uL; Monocyte% 8.2 % (0-10); NRBC Flagged by Analyzer 0 % (0-5); Neutrophil # 3.41 X10^3/uL (2.7-7.7); Neutrophil % 57.4 % (47-70); Platelet Count 339 K/mm3 (150-450); RBC Distribution Width CV 12.8 % (11.6-14.6); RBC Distribution Width SD 41.8 fl (35.1-43.9); Red Blood Count 4.68 M/mm3 (4.2-5.4)
[2023-09-07 10:52] LABS: AST(SGOT) 14 U/L (15-37); Alanine Aminotransfer ALT/SGPT 21 U/L (13-56); Albumin, Serum 3.9 g/dL (3.2-5.0); Alkaline Phosphatase 72 U/L (45-117); Anion Gap 4 (5-15); BUN 9 mg/dL (7-18); BUN/Creat Ratio 13.3 RATIO (10-20); Calcium,Total 9.3 mg/dL (8.5-10.1); Chloride 106 mmol/L (98-107); Cholesterol 170 mg/dL (200); Creatinine, Serum 0.68 mg/dL (0.55-1.02); EST Glomerular Filtration Rate 111 mL/min (>60); Est Glom Filt Rate - Afr Amer 134 mL/min (>60); Estradiol 32.4 pg/mL; Follicle Stimulating Hormone 4.4 mIU/mL; Globulin 3.8 g/dL (2.2-4.2); Glucose 95 mg/dL (74-106); High Density Lipoprotein 56 mg/dL; Potassium 3.9 mmol/L (3.5-5.1); Protein, Total 7.7 g/dL (6.4-8.2); Sodium Level 138 mmol/L (136-145); Thyroid Stim Hormone (TSH) 0.51 uIU/mL (0.358-3.74); Triglycerides 83 mg/dL; Very Low Density Lipoprotein 17 mg/dL (5-40)
[2023-09-14 18:07] LABS: Testosterone Free 1.4 pg/mL (0.0-4.2)
== END | disposition home or self-care (01) ==
LOC: LAB 08:49
PROVIDERS: Referring Provider Obstetrics & Gynecology; Visit Provider Obstetrics & Gynecology
DX: N94.6 Dysmenorrhea, unspecified (principal)
CPT/HCPCS: 36415; 80053; 80061; 82670; 83001; 83036; 84402; 84443; 85025

== ENCOUNTER → 2023-12-08 | Outpatient (CLI) | payer BC, SELFPAY ==
[2023-12-08 12:42] LABS: hCG Titer Quant., Serum 57 mIU/mL (1-3)
== END | disposition home or self-care (01) ==
LOC: MTLAB 09:34
PROVIDERS: Referring Provider Registered Nurse; Visit Provider Registered Nurse
DX: N91.2 Amenorrhea, unspecified (principal)
CPT/HCPCS: 36415; 84702

== ENCOUNTER → 2023-12-10 | Outpatient (CLI) | payer BC, SELFPAY ==
[2023-12-10 12:50] LABS: hCG Titer Quant., Serum 138 mIU/mL (1-3)
== END | disposition home or self-care (01) ==
LOC: LAB 11:42
PROVIDERS: Referring Provider Registered Nurse; Visit Provider Registered Nurse
DX: N91.2 Amenorrhea, unspecified (principal)
CPT/HCPCS: 36415; 84702

== ENCOUNTER → 2023-12-22 | Outpatient (CLI) | payer BC, SELFPAY ==
[2023-12-22 11:26] LABS: Absolute Lymphocyte Count 1.83 X10^3/uL (0.83-4.51); Basophil# 0.05 X10^3/uL; Basophil% 0.8 % (0-1); Eosinophil# 0.11 X10^3/uL; Eosinophils% 1.7 % (0-5); Hemoglobin 13.8 g/dL (12.0-15.0); Lymphocyte # 1.83 X10^3/ul (0.83-4.51); Lymphocyte % 27.9 % (19-41); Mean Corp Hgb Conc 34.5 g/dL (32-36); Mean Corpuscular Hgb 30.7 pg (27.0-32.0); Mean Corpuscular Volume 88.9 fL (81-99); Mean Platelet Vol. 10.1 fl (6.2-12.0); Monocyte# 0.52 X10^3/uL; Monocyte% 7.9 % (0-10); NRBC Flagged by Analyzer 0 % (0-5); Neutrophil # 4.04 X10^3/uL (2.7-7.7); Neutrophil % 61.4 % (47-70); Platelet Count 298 K/mm3 (150-450); RBC Distribution Width SD 39.2 fl (35.1-43.9); White Blood Count 6.6 K/mm3 (4.4-11.0)
[2023-12-22 12:15] LABS: hCG Titer Quant., Serum 7674 mIU/mL (1-3)
[2023-12-22 13:00] LABS: HIV - WCH Non-Reactive (Nonreactive); Hepatitis B Surface Antigen Non-Reactive (Nonreactive); Hepatitis C Antibody Non-Reactive (Nonreactive); Rubella IgG Reactive (Nonreactive); Syphilis Antibodies Non-reactive; Vitamin D,25 Hydroxy 40.2 ng/mL
[2023-12-23 21:07] LABS: Chlamydia By Nucleic Acid AMP Negative (Negative); Gonococcus By Nucleic Acid AMP Negative (Negative)
== END | disposition home or self-care (01) ==
PROVIDERS: Referring Provider Registered Nurse; Visit Provider Registered Nurse
DX: Z34.90 Encounter for supervision of normal pregnancy, unspecified, unspecified trimester (principal); Z87.59 Personal history of other complications of pregnancy, childbirth and the puerperium
CPT/HCPCS: 36415; 82306; 84702; 85025; 86703; 86762; 86780; 86803; 86850; 86900; 86901; 87086; 87340; 87491; 87591

== ENCOUNTER → 2023-12-24 | Outpatient (CLI) | payer BC, SELFPAY ==
[2023-12-24 11:01] LABS: hCG Titer Quant., Serum 11972 mIU/mL (1-3)
== END | disposition home or self-care (01) ==
LOC: LAB 08:54
PROVIDERS: Referring Provider Registered Nurse; Visit Provider Registered Nurse
DX: O09.90 Supervision of high risk pregnancy, unspecified, unspecified trimester (principal); Z87.59 Personal history of other complications of pregnancy, childbirth and the puerperium; Z3A.00 Weeks of gestation of pregnancy not specified
CPT/HCPCS: 36415; 84702

== ENCOUNTER → 2024-01-20 | Outpatient (CLI) | payer BC, SELFPAY ==
[2024-01-25 17:07] LABS: Anti-Cardiolipin Ab, IgG, Qn < 9 GPL U/mL (0-14); Anti-Cardiolipin Ab, IgM, Qn < 9 MPL U/mL (0-12); Beta-2-Glycoprotein I IgA <9 (0-25); Beta-2-Glycoprotein I IgG <9 (0-20); Beta-2-Glycoprotein I IgM <9 (0-32); Dilute Prothrombin Time (dPT) 29.2 sec (0.0-47.6); Dilute Russell Viper Venom 32.6 sec (0.0-47.0); Interpretation Comment: (.); PTT-LA 30.1 sec (0.0-43.5); Thrombin Time 15.6 sec (0.0-23.0); dPT Confirm Ratio 1.13 Ratio (0.00-1.34)
== END | disposition home or self-care (01) ==
LOC: LAB 13:54
PROVIDERS: Referring Provider Advanced Practice Midwife; Visit Provider Advanced Practice Midwife
DX: N96 Recurrent pregnancy loss (principal)
CPT/HCPCS: 36415; 86146; 86147

== ENCOUNTER → 2024-05-25 | Outpatient (CLI) | payer BC, SELFPAY ==
[2024-05-25 11:14] LABS: Absolute Neutrophil Count 7.1 X10^3/uL (2.0-7.7); Basophil# 0.04 X10^3/uL; Basophil% 0.4 % (0-1); Eosinophil# 0.12 X10^3/uL; Eosinophils% 1.2 % (0-5); Hematocrit 34.8 % (37-47); Hemoglobin 12.1 g/dL (12.0-15.0); Lymphocyte % 17.4 % (19-41); Mean Corp Hgb Conc 34.8 g/dL (32-36); Mean Corpuscular Hgb 31.4 pg (27.0-32.0); Mean Corpuscular Volume 90.4 fL (81-99); Monocyte# 0.74 X10^3/uL; Monocyte% 7.6 % (0-10); NRBC Flagged by Analyzer 0 % (0-5); Neutrophil # 7.09 X10^3/uL (2.7-7.7); Neutrophil % 72.7 % (47-70); Platelet Count 273 K/mm3 (150-450); RBC Distribution Width CV 12.4 % (11.6-14.6); RBC Distribution Width SD 40.5 fl (35.1-43.9); Red Blood Count 3.85 M/mm3 (4.2-5.4); White Blood Count 9.8 K/mm3 (4.4-11.0)
[2024-05-25 11:31] LABS: Glucose Challenge Gest 1H 50g 109 mg/dL (70-140)
[2024-05-25 12:06] LABS: HIV - WCH Non-Reactive (Nonreactive); Syphilis Antibodies Non-reactive
== END | disposition home or self-care (01) ==
LOC: LAB 10:49
PROVIDERS: Referring Provider Obstetrics & Gynecology; Visit Provider Obstetrics & Gynecology
DX: O09.90 Supervision of high risk pregnancy, unspecified, unspecified trimester (principal); Z3A.00 Weeks of gestation of pregnancy not specified; Z13.1 Encounter for screening for diabetes mellitus
CPT/HCPCS: 36415; 82950; 85025; 86703; 86780

== ENCOUNTER → 2024-06-26 | Outpatient (CLI) | payer BC, SELFPAY ==
--- NOTE | 2024-06-26 08:32 | US_ITS ---
PROCEDURE: SECOND AND THIRD TRIMESTER OBSTETRICAL ULTRASOUND REASON FOR EXAM: Female, 28 years old. Evaluate placenta LMP: 11/02/2023 TECHNIQUE: Transabdominal PRIOR ULTRASOUND: No prior examinations are available. FINDINGS: There is a single intrauterine fetus. The fetus is in a vertex presentation. There is demonstrated cardiac activity with a heart rate of 138 bpm. There is a normal amniotic fluid volume. The largest amniotic fluid pocket measures 7.1 cm. The amniotic fluid index (MAUREEN) is 11.4 cm. The placenta is anterior in location and is not low lying. There are Grade 1 placental changes. The cervix is not visualized. The adnexal regions are not visualized. BIOMETRY: BPD: 8.7 cm: 35 weeks, 1 days HC: 31.4 cm: 35 weeks, 1 days OFD: 10.9 cm, 35 weeks, 1 day AC: 31.3 cm: 35 weeks, 2 days FL: 6.5 cm: 33 weeks, 3 days CI: 79.8% FL/BPD: 74.5% FL/HC: 20.7% FL/AC: 20.7% HC/AC: 1.0 age by current US: 34 weeks, 6 days. PADMINI by current US: 08/01/2024. Estimated weight: 2536 grams, +/- 380 grams, 73 %. Age by LMP: 33 weeks, 6 days. PADMINI by LMP: 08/08/2024. ANATOMY: anatomy is not included on this examination. US/OB Limited With Biometrics IMPRESSION: 1. Single live intrauterine fetus in cephalic presentation with an estimated gestational age of 33 weeks and 6 days. 2. Anterior placenta without previa. No placental abnormality is seen at this time. Electronically Signed: Baljinder Akins MD at 11:59 EDT ,
== END | disposition home or self-care (01) ==
PROVIDERS: Referring Provider Advanced Practice Midwife; Visit Provider Advanced Practice Midwife
DX: O43.119 Circumvallate placenta, unspecified trimester (principal); Z3A.00 Weeks of gestation of pregnancy not specified
CPT/HCPCS: 76816

== ENCOUNTER → 2024-07-13 | Outpatient (CLI) | payer BC, SELFPAY | END | disposition home or self-care (01) | LOC: LABSPEC 12:04 | PROVIDERS: Referring Provider Obstetrics & Gynecology; Visit Provider Obstetrics & Gynecology | DX: O09.90 Supervision of high risk pregnancy, unspecified, unspecified trimester (principal); Z3A.00 Weeks of gestation of pregnancy not specified | CPT/HCPCS: 87081 ==

== ENCOUNTER 2024-07-23 15:50 | Inpatient (IN) | payer BC, SELFPAY ==
[2024-07-23] VITALS (12 sets, daily range): BP systolic 118–166; BP diastolic 56–85; PULSE 68–89; RESP 16–18; TEMP 36.6–37.3; O2SAT 97; BMI 40.6
--- NOTE | 2024-07-23 13:35 | OB.TRI.HP_ITS ---
HPI - General HPI Narrative BENNY CASTILLO, is a 28 F who presents Maternal Data Information PADMINI Calculator Estimated Delivery Date Method Current WG Current Estimate 08/08/24 LMP (Certain) 37w 5d PFSH PFSH Medical History Polycystic disease, ovaries Seasonal allergies History of fracture of right ankle Home Medications ?Medication ?Instructions ?Recorded ?Last Taken ?Type vitamin#30 30 mg iron-10 1 cap PO DAILY 12/16/23 Unknown History mg iron-folic acid 1 mg-omg3 capsule pyridoxine (vitamin B6) 100 mg 100 mg PO DAILY 07/23/24 Unknown History tablet Allergy/AdvReac Type Severity Reaction Status Date / Time progesterone Allergy Mild Hives Verified 07/23/24 13:20 Family History Grandmother Breast cancer Aunt Cancer, Onset Age: 44 ovarian- Paternal Surgical History [place] teeth removed History of ankle surgery Social History adopted: No household members: spouse housing: house number of children: 0 current occupational status: employed 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 current occupational exposures/hazards: No pets and animals: Yes pets and animals: dog(s) history of recent travel: Yes details: [place] in August out of state: Yes sexually active: Yes Smoking Status: Never smoker alcohol intake: current alcohol intake frequency: a few times a month details: Not while substance use type: does not use well-balanced diet: daily or most days caffeine: No eating out: 1-3 times/week during the past year weight has: decreased > 10 lbs what type of physical activity do you participate in: running, weight training and other details: Crossfit frequency: 3-4 times per week duration: 45-60 minutes/day seatbelt use: always do you feel safe at home: Yes 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 Date Name GA/Weeks Outcome Route Bth Weight Infant Gen Labor Lgth Anesthesia Del Locatn Provider FOB 10/20/18 6 spontaneous 07/09/19 13 spontaneous 10/20/23 6 spontaneous Delivery Date: 07/09/19 Last Updated by: Nicky Hoskins RN [facility] testing Visit Details Expected Delivery Route/Plan Labor Preferences- CB/BF classes: [] labor support person: [] labor intervention preferences: [] pain management options preferred: [] cut cord/dad catch: [] : [] PP control planned: [] discussed possible routes of delivery and associated risks: [] special requests: [] Plans Covid status: [] Flu vaccine: [] Tdap vaccine:given Rhogam: na LARC form signed:declined movement and labor precautions reviewed. Problem list reviewed and updated with the most current plan of care details and appropriate orders placed. Relevant counseling for the gestational age provided. Continue routine care and follow up unless otherwise noted in visit notes/problem list details OB Flowsheet Initial Weight: Not Recorded Date -?-?-?-?-?-?-?-?-?-?-?-?- EGA Weight BP Urine Prot -?-?-?-?-?-?-?-?-?-?-?-?- Glucose FHR FuHt Pres Dilation -?-?-?-?-?-?-?-?-?-?-?-?- Effaced St Visit Note 01/20/24 -?-?-?-?-?-?-?-?-?-?-?-?- 11w 2d 229 lb 2 oz 123/79 Nega tive -?-?-?-?-?-?-?-?-?-?-?-?- Negative 178 -?-?-?-?--?-?-?-?-?-?-?-?- KW- CRL cons wit h 11.1 gestation. declines NIPT at this time. 02/20/24 -?-?-?-?-?-?-?-?-?-?-?-?- 15w 5d 226 lb 132/82 Negative -?-?--?-?-?-?-?-?-?-?-?-?- Negative 154 -?-?-?-?-?-?-?-?-?-?-?-?- JV- no complaint s today other than lingering nausea that is improving. 03/19/24 -?-?-?--?-?-?-?-?-?-?-?-?- 19w 5d 232 lb 4 oz 135/76 Nega tive -?-?-?-?-?-?-?-?-?-?-?-?- Negative 154 -?-?-?-?-?-?-?-?-?-?-?-?- KW- no vb/crampi ng. US discussed at [facility] and has repeat US in 4 weeks 04/20/24 -?-?-?-?-?-?-?-?-?-?-?-?- 24w 2d 236 lb 4 oz 112/68 -?-?-?-?-?-?-?-?-?-?-?-?- 160 -?-?-?-?-?-?-?-?-?-?-?-?- JV- feeling more tired lately. no lof, vaginal bleeding, or dec fm. start slow fe and will check at 28 week labs. 05/25/24 -?-?-?-?-?-?-?-?-?-?-?-?- 29w 2d 241 lb 115/71 Negative -?-?-?-?-?-?-?-?-?-?-?-?- Negative 140 30 -?-?-?-?-?-?-?-?-?-?-?-?- Sm- no vb lof go od fm no regular ctx 06/06/24 -?-?-?-?-?-?-?-?-?-?-?-?- 31w 0d 248 lb 117/74 Negative -?-?-?-?-?-?-?-?-?-?-?-?- Negative 140 31 -?-?-?-?-?-?-?-?-?-?-?-?- SM- no vb lof go od fm no regular ctx 06/22/24 -?-?-?-?-?-?-?-?-?-?-?-?- 33w 2d 246 lb 136/84 -?-?-?-?-?-?-?-?-?-?-?-?- 140 33 -?-?-?-?-?-?-?-?-?-?-?-?- KW- no vb/lof/ct x. good fm. KW- no vb/lof/ctx. good fm. growth US ordered for abnormal placenta 07/06/24 -?-?-?-?-?-?-?-?-?-?-?-?- 35w 2d 251 lb 133/81 Negative -?-?-?-?-?-?-?-?-?-?-?-?- Negative 130 37 -?-?-?-?-?-?-?-?-?-?-?-?- KW- no vb/lof/ct x. good fm. growth US not read yet but appears 72% 07/13/24 -?-?-?-?-?-?-?-?-?-?-?-?- 36w 2d 251 lb 123/79 -?-?-?-?-?-?-?-?-?-?-?-?- 141 36 Cephalic -?-?-?-?-?-?-?-?-?-?-?-?- JV- no lof, va g inal bleeding, or dec fm. vtx on bedside scan. gbs collected but declines pelvic exam. 07/20/24 -?-?-?-?-?-?-?-?-?-?-?-?- 37w 2d 253 lb 6 oz 121/74 Nega tive -?-?-?-?-?-?-?-?-?-?-?-?- Negative 163 37 Cephalic 1 -?-?-?-?-?-?-?-?-?-?-?-?- 60 -2 JV- pt had some spotting today. no complaints of loss of fluid or dec fm. no blood on exam. labor precautions discussed.
--- NOTE | 2024-07-23 13:35 | OB.TRI.NOTE ---
HPI - General HPI Narrative BENNY CASTILLO, is a 28 F who presents Maternal Data Information PADMINI Calculator Estimated Delivery Date Method Current WG Current Estimate 08/08/24 LMP (Certain) 37w 5d PFSH PFSH Medical History Polycystic disease, ovaries Seasonal allergies History of fracture of right ankle Home Medications ?Medication ?Instructions ?Recorded ?Last Taken ?Type vitamin#30 30 mg iron-10 1 cap PO DAILY 12/16/23 Unknown History mg iron-folic acid 1 mg-omg3 capsule pyridoxine (vitamin B6) 100 mg 100 mg PO DAILY 07/23/24 Unknown History tablet Allergy/AdvReac Type Severity Reaction Status Date / Time progesterone Allergy Mild Hives Verified 07/23/24 13:20 Family History Grandmother Breast cancer Aunt Cancer, Onset Age: 44 ovarian- Paternal Surgical History [place] teeth removed History of ankle surgery Social History adopted: No household members: spouse housing: house number of children: 0 current occupational status: employed 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 current occupational exposures/hazards: No pets and animals: Yes pets and animals: dog(s) history of recent travel: Yes details: [place] in August out of state: Yes sexually active: Yes Smoking Status: Never smoker alcohol intake: current alcohol intake frequency: a few times a month details: Not while substance use type: does not use well-balanced diet: daily or most days caffeine: No eating out: 1-3 times/week during the past year weight has: decreased > 10 lbs what type of physical activity do you participate in: running, weight training and other details: Crossfit frequency: 3-4 times per week duration: 45-60 minutes/day seatbelt use: always do you feel safe at home: Yes 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 Date Name GA/Weeks Outcome Route Bth Weight Gen Labor Lgth Anesthesia Del Locatn Provider FOB 10/20/18 6 spontaneous 07/09/19 13 spontaneous 10/20/23 6 spontaneous Delivery Date: 07/09/19 Last Updated by: Nicky Hoskins RN [facility] Visit Details Expected Delivery Route/Plan Labor Preferences- CB/BF classes: [] labor support person: [] labor intervention preferences: [] pain management options preferred: [] cut cord/dad catch: [] : [] PP control planned: [] discussed possible routes of delivery and associated risks: [] special requests: [] Plans Covid status: [] Flu vaccine: [] Tdap vaccine:given Rhogam: na LARC form signed:declined movement and labor precautions reviewed. Problem list reviewed and updated with the most current plan of care details and appropriate orders placed. Relevant counseling for the gestational age provided. Continue routine care and follow up unless otherwise noted in visit notes/problem list details OB Flowsheet Initial Weight: Not Recorded Date <del>?</del> EGA Weight BP Urine Prot <del>?</del> Glucose FHR FuHt Pres Dilation <del>?</del> Effaced St Visit Note 01/20/24 <del>?</del> 11w 2d 229 lb 2 oz 123/79 Negative <del>?</del> Negative 178 <del>?</del> KW- CRL cons with 11.1 gestation. declines NIPT at this time. 02/20/24 <del>?</del> 15w 5d 226 lb 132/82 Negative <del>?</del> Negative 154 <del>?</del> JV- no complaints today other than lingering nausea that is improving. 03/19/24 <del>?</del> 19w 5d 232 lb 4 oz 135/76 Negative <del>?</del> Negative 154 <del>?</del> KW- no vb/cramping. US [facility] at [facility] and has repeat US in 4 weeks 04/20/24 <del>?</del> 24w 2d 236 lb 4 oz 112/68 <del>?</del> 160 <del>?</del> JV- feeling more tired lately. no lof, vaginal bleeding, or dec fm. start slow fe and will check at 28 week labs. 05/25/24 <del>?</del> 29w 2d 241 lb 115/71 Negative <del>?</del> Negative 140 30 <del>?</del> Sm- no vb lof good fm no regular ctx 06/06/24 <del>?</del> 31w 0d 248 lb 117/74 Negative <del>?</del> Negative 140 31 <del>?</del> SM- no vb lof good fm no regular ctx 06/22/24 <del>?</del> 33w 2d 246 lb 136/84 <del>?</del> 140 33 <del>?</del> KW- no vb/lof/ctx. good fm. KW- no vb/lof/ctx. good fm. growth US ordered for abnormal placenta 07/06/24 <del>?</del> 35w 2d 251 lb 133/81 Negative <del>?</del> Negative 130 37 <del>?</del> KW- no vb/lof/ctx. good fm. growth US not read yet but appears 72% 07/13/24 <del>?</del> 36w 2d 251 lb 123/79 <del>?</del> 141 36 Cephalic <del>?</del> JV- no lof, va ginal bleeding, or dec fm. vtx on bedside scan. gbs collected but declines pelvic exam. 07/20/24 <del>?</del> 37w 2d 253 lb 6 oz 121/74 Negative <del>?</del> Negative 163 37 Cephalic 1 <del>?</del> 60 -2 JV- pt had some spotting today. no complaints of loss of fluid or dec fm. no blood on exam. labor precautions discussed.
--- NOTE | 2024-07-23 14:14 | US_ITS ---
STUDY: OBSTETRICAL ULTRASOUND - BIOPHYSICAL PROFILE REASON FOR EXAM: Female, 28 years old decreased movement LMP: November 02, 2023. PRIOR ULTRASOUND: Comparison is made with prior study June 26, 2024. TECHNIQUE: Transabdominal TECHNICAL QUALITY: Adequate. FINDINGS: There is a single intrauterine fetus. The fetus is in a cephalic presentation. There is demonstrated cardiac activity with a heart rate of 140 bpm. There is a normal amniotic fluid volume. The largest amniotic fluid pocket measures 6.2 cm x 4.2 cm. The amniotic fluid index (MAUREEN) is 10.5 cm. The placenta is anterior in location and is not low lying. There are Grade 1 placental changes. Age by LMP: 37 weeks, 5 days. PADMINI by LMP: August 08, 2024.. BIOPHYSICAL PROFILE: Breathing Movements (FBM): 0 Gross Body Movements (GBM): 0 Tone (FT): 2 Amniotic Fluid Volume (AFV): 2 TOTAL SCORE: 4 / 8 US/Biophysical Prof W/O Non Stres IMPRESSION: biophysical profile of 12/25. The results were indicated to the referring physician. Electronically Signed: Rocky Marie MD at 15:36 EST ,
[2024-07-23] MEDS: Lactated Ringers 1,000 ML 50 ML IV (16:30)
[2024-07-23] MEDS: miSOPROStol 25 MCG TABLET VAGINAL (16:45)
[2024-07-23 16:53] LABS: Absolute Lymphocyte Count 1.14 X10^3/uL (0.83-4.51); Absolute Neutrophil Count 7.5 X10^3/uL (2.0-7.7); Basophil# 0.04 X10^3/uL; Basophil% 0.4 % (0-1); Eosinophil# 0.06 X10^3/uL; Eosinophils% 0.6 % (0-5); Hematocrit 38.3 % (37-47); Hemoglobin 13.4 g/dL (12.0-15.0); Lymphocyte # 1.14 X10^3/ul (0.83-4.51); Mean Corpuscular Hgb 31.2 pg (27.0-32.0); Mean Corpuscular Volume 89.3 fL (81-99); Mean Platelet Vol. 10.8 fl (6.2-12.0); Monocyte# 0.71 X10^3/uL; Monocyte% 7.5 % (0-10); NRBC Flagged by Analyzer 0 % (0-5); Neutrophil # 7.46 X10^3/uL (2.7-7.7); Neutrophil % 78.9 % (47-70); POSITIVE COUNT YES; RBC Distribution Width CV 12.9 % (11.6-14.6); RBC Distribution Width SD 41.6 fl (35.1-43.9); Red Blood Count 4.29 M/mm3 (4.2-5.4); White Blood Count 9.5 K/mm3 (4.4-11.0)
[2024-07-23 17:01] LABS: Differential Indicated SCAN CRITERIA MET
[2024-07-23 17:37] LABS: Syphilis Antibodies Non-reactive
[2024-07-23 18:45] LABS: Differential Comment SCANNED
[2024-07-23 18:46] LABS: Platelet Estimate ADEQUATE (ADEQ)
[2024-07-23] MEDS: miSOPROStol 50 MCG TABLET VAGINAL (20:59)
[2024-07-24] VITALS (72 sets, daily range): BP systolic 111–155; BP diastolic 55–101; PULSE 61–135; RESP 14–20; TEMP 36.2–38.1; O2SAT 16–100
--- NOTE | 2024-07-24 00:18 | HP.PCM.OB_ITS ---
HPI - General General Date of Admission: 07/23/24 HPI Narrative BENNY CASTILLO, is a 28 F who presents for decreased movement and had a 4/8 bpp, isolated late decel. no vb irregular ctx no regular ctx. Maternal Data Information PADMINI Calculator Estimated Delivery Date Method Current WG Current Estimate 08/08/24 LMP (Certain) 37w 6d PFSH PFSH Medical History (Updated 07/24/24 @ 00:[address] Uzma Parsons MD) Depression Anxiety Polycystic disease, ovaries Seasonal allergies History of fracture of right ankle Home Medications ?Medication ?Instructions ?Recorded ?Last Taken ?Type vitamin#30 30 mg iron-10 1 cap PO DAILY 12/16/23 Unknown History mg iron-folic acid 1 mg-omg3 capsule pyridoxine (vitamin B6) 100 mg 100 mg PO DAILY 07/23/24 Unknown History tablet Allergy/AdvReac Type Severity Reaction Status Date / Time progesterone Allergy Mild Hives Verified 07/23/24 13:20 Family History Grandmother Breast cancer Aunt Cancer, Onset Age: 44 ovarian- Paternal Surgical History [place] teeth removed History of ankle surgery Social History adopted: No household members: spouse housing: house number of children: 0 current occupational status: employed 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 current occupational exposures/hazards: No pets and animals: Yes pets and animals: dog(s) history of recent travel: Yes details: [place] in August out of state: Yes sexually active: Yes Smoking Status: Never smoker alcohol intake: current alcohol intake frequency: a few times a month details: Not while substance use type: does not use well-balanced diet: daily or most days caffeine: No eating out: 1-3 times/week during the past year weight has: decreased > 10 lbs what type of physical activity do you participate in: running, weight training and other details: Crossfit frequency: 3-4 times per week duration: 45-60 minutes/day seatbelt use: always do you feel safe at home: Yes 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 Date Name GA/Weeks Outcome Route Bth Weight [facility] F[facility] 10/20/18 6 spontaneous 07/09/19 13 spontaneous 10/20/23 6 spontaneous Delivery Date: 07/09/19 Last Updated by: Nicky Hoskins RN [facility] testing Visit Details Expected Delivery Route/Plan Labor Preferences- CB/BF classes: [] labor support person: [] labor intervention preferences: [] pain management options preferred: [] cut cord/dad catch: [] : [] PP control planned: [] discussed possible routes of delivery and associated risks: [] special requests: [] Plans Covid status: [] Flu vaccine: [] Tdap vaccine:given Rhogam: na LARC form signed:declined movement and labor precautions reviewed. Problem list reviewed and updated with the most current plan of care details and appropriate orders placed. Relevant counseling for the gestational age provided. Continue routine care and follow up unless otherwise noted in visit notes/problem list details OB Flowsheet Initial Weight: Not Recorded Date -?-?-?-?-?-?-?-?-?-?-?-?- EGA Weight BP Urine Prot -?-?-?-?-?-?-?-?-?-?-?-?- Glucose FHR FuHt Pres Dilation -?-?-?-?-?-?-?-?-?-?-?-?- Effaced St Visit Note 01/20/24 -?-?-?-?-?-?-?-?-?-?-?-?- 11w 2d 229 lb 2 oz 123/79 Nega tive -?-?-?-?-?-?-?-?-?-?-?-?- Negative 178 -?-?-?-?-?-?-?-?-?-?-?-?- KW- CRL cons wit h 11.1 gestation. declines NIPT at this time. 02/20/24 -?-?-?-?-?-?-?-?-?-?-?-?- 15w 5d 226 lb 132/82 Negative -?-?-?-?-?-?-?-?-?-?-?-?- Negative 154 -?-?-?-?-?-?-?-?-?-?-?-?- JV- no complaint s today other than lingering nausea that is improving. 03/19/24 -?-?-?-?-?-?-?-?-?-?-?-?- 19w 5d 232 lb 4 oz 135/76 Nega tive -?-?-?-?-?-?-?-?-?-?-?-?- Negative 154 -?-?-?-?-?-?-?-?-?-?-?-?- KW- no vb/crampi ng. [facility] weeks 04/20/24 -?-?-?-?-?-?-?-?-?-?-?-?- 24w 2d 236 lb 4 oz 112/68 -?-?-?-?-?-?-?-?-?-?-?-?- 160 -?-?-?-?-?-?-?-?-?-?-?-?- JV- feeling more tired lately. no lof, vaginal bleeding, or dec fm. start slow fe and will check at 28 week labs. 05/25/24 -?-?-?-?-?-?-?-?-?-?-?-?- 29w 2d 241 lb 115/71 Negative -?-?-?-?-?-?-?-?-?-?-?-?- Negative 140 30 -?-?-?-?-?-?-?-?-?-?-?-?- Sm- no vb lof go od fm no regular ctx 06/06/24 -?-?-?-?-?-?-?-?-?-?-?-?- 31w 0d 248 lb 117/74 Negative -?-?-?-?-?-?-?-?-?-?-?-?- Negative 140 31 -?-?-?-?--?-?-?-?-?-?-?-?- SM- no vb lof go od fm no regular ctx 06/22/24 -?-?-?-?-?-?-?-?-?-?-?-?- 33w 2d 246 lb 136/84 -?-?-?-?-?-?-?-?-?-?-?-?- 140 33 -?-?-?-?-?-?-?-?-?-?-?-?- KW- no vb/lof/ct x. good fm. KW- no vb/lof/ctx. good fm. growth US ordered for abnormal placenta 07/06/24 -?-?-?-?-?-?-?-?-?-?-?-?- 35w 2d 251 lb 133/81 Negative -?-?-?-?-?-?-?-?-?-?-?-?- Negative 130 37 -?-?-?-?-?-?-?-?-?-?-?-?- KW- no vb/lof/ct x. good fm. growth US not read yet but appears 72% 07/13/24 -?-?-?-?-?-?-?-?-?-?-?-?- 36w 2d 251 lb 123/79 -?-?-?-?-?-?-?-?-?-?-?-?- 141 36 Cephalic -?-?-?-?--?-?-?-?-?-?-?-?- JV- no lof, va g inal bleeding, or dec fm. vtx on bedside scan. gbs collected but declines pelvic exam. 07/20/24 -?-?-?-?-?-?-?-?-?-?-?-?- 37w 2d 253 lb 6 oz 121/74 Nega tive -?-?-?-?-?-?-?-?-?-?-?-?- Negative 163 37 Cephalic 1 -?-?-?-?-?-?-?-?-?-?-?-?- 60 -2 JV- pt had some spotting today. no complaints of loss of fluid or dec fm. no blood on exam. labor precautions discussed. NST FHR Rate Baby A Baseline: 130 Variability:: Moderate Accelerations:: 15 x 15 Decelerations:: None NST Reactive:: Yes FHR Category:: Category I Uterine Activity:: irregular ROS Constitutional Constitutional: Reports systems reviewed and no addt'l complaints, except as documented Eyes Eyes: Denies change in vision ENT HEENT: Reports systems reviewed and no addt'l complaints, except as documented; Denies headache(s) Cardiovascular Cardiovascular: Reports systems reviewed and no addt'l complaints, except as documented; Denies chest pain or dyspnea Respiratory/Chest Respiratory/Chest: Reports systems reviewed and no addt'l complaints, except as documented Gastrointestinal Gastrointestinal: Reports systems reviewed and no addt'l complaints, except as documented; Denies abdominal pain Genitourinary Genitourinary: Reports systems reviewed and no addt'l complaints, except as documented, contractions Details: present (irregular) and movement Details: present; Denies dysuria or genital lesions Musculoskeletal Musculoskeletal: Reports systems reviewed and no addt'l complaints, except as documented Neurologic Neurologic: Reports systems reviewed and no addt'l complaints, except as documented Endocrine Endocrinology: Reports systems reviewed and no addt'l complaints, except as documented Vital Signs Vital Signs Vital Signs: 07/23/24 13:08 07/23/24 13:08 07/23/24 13:08 Temperature Temperature Source Pulse Rate 68 70 Respiratory Rate Blood Pressure 142/76 H BP Systolic 142 BP Diastolic 76 Pulse Ox 07/23/24 13:08 07/23/24 13:08 07/23/24 13:08 Temperature Temperature Source Temporal Pulse Rate Respiratory Rate 16 Blood Pressure BP Systolic BP Diastolic Pulse Ox 97 07/23/24 13:08 07/23/24 13:27 07/23/24 13:27 Temperature 98.1 F Temperature Source Pulse Rate 74 Respiratory Rate Blood Pressure 138/80 H BP Systolic 138 BP Diastolic 80 Pulse Ox 07/23/24 13:41 07/23/24 13:41 07/23/24 13:57 Temperature Temperature Source Pulse Rate 74 Respiratory Rate Blood Pressure 132/75 H 133/77 H BP Systolic 132 133 BP Diastolic 75 77 Pulse Ox 07/23/24 13:57 07/23/24 14:11 07/23/24 14:11 Temperature Temperature Source Pulse Rate 72 77 Respiratory Rate Blood Pressure 135/81 H BP Systolic 135 BP Diastolic 81 Pulse Ox 07/23/24 17:27 07/23/24 17:27 07/23/24 17:27 Temperature 99.2 F H Temperature Source Temporal Pulse Rate Respiratory Rate 16 Blood Pressure BP Systolic BP Diastolic Pulse Ox 07/23/24 17:30 07/23/24 17:30 07/23/24 19:18 Temperature Temperature Source Pulse Rate 75 Respiratory Rate Blood Pressure 137/74 H 166/80 H BP Systolic 137 166 BP Diastolic 74 80 Pulse Ox 07/23/24 19:18 07/23/24 19:18 07/23/24 19:18 Temperature Temperature Source Temporal Pulse Rate 88 Respiratory Rate 16 Blood Pressure BP Systolic BP Diastolic Pulse Ox 07/23/24 19:18 07/23/24 19:21 07/23/24 19:21 Temperature 98.4 F Temperature Source Pulse Rate 89 Respiratory Rate Blood Pressure 142/85 H BP Systolic 142 BP Diastolic 85 Pulse Ox 07/23/24 19:22 07/23/24 19:22 07/23/24 22:37 Temperature Temperature Source Temporal Pulse Rate 80 Respiratory Rate Blood Pressure 135/74 H BP Systolic 135 BP Diastolic 74 Pulse Ox 07/23/24 22:37 07/23/24 22:37 07/23/24 22:38 Temperature 97.9 F Temperature Source Pulse Rate Respiratory Rate 18 Blood Pressure 118/56 L BP Systolic 118 BP Diastolic 56 Pulse Ox 07/23/24 22:38 Temperature Temperature Source Pulse Rate 71 Respiratory Rate Blood Pressure BP Systolic BP Diastolic Pulse Ox Weight Weight: 252 lb Body Mass Index (BMI) 40.6 Physical Exam Const alert, oriented x3, no apparent distress and healthy appearing HEENT normocephalic and moist oral mucous membranes Head and Scalp: atraumatic Neck full ROM, no lymphadenopathy, supple and thyroid normal General: trachea midline Lymph Lymphatic: no lymphadenopathy noted Chest inspection of chest normal Resp normal respiratory effort Cardio regular rate GI normal to inspection, nondistended, normoactive bowel sounds, soft to palpation and non-tender Inspection: gravid external exam normal Manual OB Exam: estimated gestational size appropriate, presentation cephalic, dilated, effaced and station Extremity normal to inspection General Extremity: Negative for edema Skin no rashes or lesions noted Neuro no focal motor deficits and deep tendon reflexes 2+ bilaterally Motor Exam: strength 5/5 throughout and clonus absent Psych mental status grossly normal Labs Labs Labs: Blood Type B POSITIVE Antibody Screen NEGATIVE Hct 38.3 % (37-47) Hgb 13.4 g/dL (12.0-15.0) Obstetrics Ultrasound Syphilis Total Ab Non-reactive Rubella IgG Antibody Reactive (Nonreactive) Hep Bs Antigen Non-Reactive (Nonreactive) Hepatitis C Antibody Non-Reactive (Nonreactive) Chlamydia DNA (DION) Negative (Negative) N.gonorrhoeae DNA (DION) Negative (Negative) HIV 1&2 Antibody Non-Reactive (Nonreactive) Glucose 1 Hr 50 gm 109 mg/dL (70-140) Miscellaneous Test Assessment & Plan (1) echogenic intracardiac focus on ultrasound: COMMENT: follow up US in 4 weeks. declines NIPT (2) Obesity affecting : COMMENT: NSTs at 37 weeks. bmi 35 encouarged healthy weight gain (3) Circumvallate placenta: COMMENT: growth us in 4 weeks (4) History of miscarriage: COMMENT: APL panel normal (5) Supervision of high-risk : COMMENT: PRR, , PADMINI 08/08, : [place] (6) : QUALIFIERS: Weeks of gestation: 37 weeks Qualified Code(s): Z3A.37 - 37 weeks gestation of COMMENT: Discussed genetic/carrier testing, normal anatomy (7) Abnormal test: PLAN: Plan Patient presents IOL, plan management for with cytotec then pitocin/AROM. Pain management: plans epidural. GBS negative. Management of any complications: none I have reviewed the [facility] and made any clinically relevant updates.
--- NOTE | 2024-07-24 05:39 | PCM.PN.BLA ---
Progress Note had some peroids of intermittent lates overnight but would resolve with position changes. did have tachysystole at one point with cytotec so switching to fb. placed and SROM clear fluid with placement. continue souza for now.
--- NOTE | 2024-07-24 05:59 | NURSING ---
50cc of sterile normal saline water given in souza bulb due to IV fluid shortage per Dr. Parsons @[phone]
[2024-07-24] MEDS: Lactated Ringers 1,000 ML 999 ML IV ×2 (07:05→13:30)
[2024-07-24] MEDS: fentaNYL-bupivacaine (epidural) 100 ML BAG EPIDURAL ×2 (08:16→14:00)
[2024-07-24] MEDS: Oxytocin 15 Units/NS 250ml 15 UNITS/250 ML IV.SOLN 2 UNITS IV (08:33)
--- NOTE | 2024-07-24 08:34 | PN_ITS ---
Progress Note comfortable with epidural current tracing: FHT: 135 Moderate variability reactive no decelerations category I tracing [place]: 3-5 Contractions Membranes: remains clear SVE:6/80/-2 IUPC placed A/P: Continue with position changes Titrate pitocin per protocol Epidural per anesthesia GBS neg Anticipate Dr Parsons aware of above assessment and agrees with plan of care Assessment & Plan Assessment/Plan (1) Abnormal test: (2) echogenic intracardiac focus on ultrasound: (3) Obesity affecting : (4) Circumvallate placenta: (5) History of miscarriage: (6) Supervision of high-risk : (7) : QUALIFIERS: Weeks of gestation: 37 weeks Qualified Code(s): Z3A.37 - 37 weeks gestation of Multi Select Codes Urinary/Genital Urinary/Genital CPT Codes: No Charge
[2024-07-24] MEDS: Lactated Ringers 1,000 ML 200 ML IV (10:16)
--- NOTE | 2024-07-24 12:10 | PCM.PN.BLA ---
Progress Note comfortable with epidural although starting to feel mild contractions- anesthesia notified current tracing: FHT: 130 Moderate variability reactive no decelerations category II tracing [place]: 2-5 Contractions Membranes: remains clear SVE: 6.5/90/0 reviewed tracing abnormalities since last note: collaboration with Dr Contreras at this time for Cat II FHT tracing. reviewed strip at this time while on unit A/P: Continue with position changes Titrate pitocin per protocol Epidural per anesthesia GBS neg Anticipate Dr Cordero aware of above assessment and agrees with plan of care Assessment & Plan Assessment/Plan (1) Abnormal test: (2) echogenic intracardiac focus on ultrasound: (3) Obesity affecting : (4) Circumvallate placenta: (5) History of miscarriage: (6) Supervision of high-risk : (7) : QUALIFIERS: Weeks of gestation: 37 weeks Qualified Code(s): Z3A.37 - 37 weeks gestation of Multi Select Codes Urinary/Genital Urinary/Genital CPT Codes: No Charge
[2024-07-24] MEDS: Amnioinfusion- 0.9% NS 1,000 ML IV.SOLN. 1000 ML INTRA-UTER (14:09)
--- NOTE | 2024-07-24 15:28 | PN_ITS ---
Progress Note pt is in hands/ knees and tracing looking some better. Per CMW baby is OP and still only 6 cm. unable to restart pitocin since 11 am. current tracing: FHT: minimal variability to Moderate variability, when not in hands/knees has frequent late decelerations [place]: q 2-5 minutes Contractions A/P: persistent cat 2 tracing. variability is becoming more minimal. failure to dilate also- plan for melody section. After discussing the patient's diagnosis and treatment plan options, patient wishes to proceed with surgical management. I have discussed with the patient the risks, benefits, and alternatives of the procedure which include but are not limited to risks of anesthesia, bleeding, infection, possible damage to bowel, bladder, or surrounding vasculature which could lead to additional surgery to evaluate any complications. Patient agrees to procedure and wishes to proceed.
[2024-07-24] MEDS: Cefazolin 2 GM in Syringe IV (15:45)
[2024-07-24] MEDS: Azithromycin 500 MG in Dextrose 5%-Water (250mL Bag) 250 ML 250 MG IV (16:01)
--- NOTE | 2024-07-24 16:14 | PLAC_PTH ---
PATIENT: BENNY CASTILLO LOC: [facility] U#:[id number] AGE/SX: 28/F ROOM: WP003 RE07/23/[address]: Dr. Ginette Contreras DO : 1995 BED: 1 DIS: 07/26/2024 SPEC #: [id number] RECD: 07/24/24 23:06 STATUS: BLAIRE THANIA #: [id number] LUZ MARIA: 07/24/24 16:[address]: Ginette Contreras DEPT: SURGICAL PATHOLOGY RECD BY: Farrukh Stout ENTERED: 07/25/24 10:01 SP TYPE: PLACENTA OTHR DR: No Primary Care Phys Tissues: Placenta, NOS Procedures: Surgery Specimen Level V HEADER OPERATION: Primary section PRE-OP DIAGNOSIS: section TISSUE SUBMITTED: Placenta MICROSCOPIC DIAGNOSIS Placenta: Placental disc - third trimester placenta (453 gm). - Intraparenchymal hemorrhage (1.0cm in greatest dimension) Membranes - no pathologic diagnosis. Umbilical cord - three blood vessels and no pathologic diagnosis. SJ: 07/27/2024 MICROSCOPIC DESCRIPTION Slides are reviewed. GROSS DESCRIPTION SPECIMEN: PLACENTA / CLINICAL INFORMATION: A. Weight: 3.545 kg B. Gestational Age: 37 weeks C. Sex: Male PLACENTAL WEIGHT (POST FIXATION): 453 gm PLACENTAL DIMENSIONS: 17.0 x 15.0 x 4.0 cm PLACENTAL SHAPE: Usual ovoid PLACENTAL WEIGHT FOR GESTATIONAL AGE: Within 10-99th percentile MEMBRANES - Present A. Insertion: Marginal B. Site of rupture from edge: Present separately in the container detached from placenta. Distance of rupture cannot be assessed. C. Color of membrane: Lopez-frecnh D. Abnormalities: None UMBILICAL CORD - Present A. Color: Lopez-french B. Insertion: Paracentral C. Length: 40.0cm D. Diameter: 1.1 cm E. Number of vessels: Three F. Abnormalities: None PLACENTAL DISC - Present A. Color of surface: Lopez-french B. surface abnormalities: None C. Maternal cotyledons: Intact with minimal tears D. Attached retro placental clot: No clot E. Cut surface: Dark red and spongy F. Lesions: Sections reveal one lopez indurated lesion measuring 1.0cm in greatest dimension. G. Separate clot: At the site of detached blood clots are multiple blood clots weighing in aggregate 34gm and measuring in aggregate 8.0 x 7.0 x 3.0cm. SECTIONS SUBMITTED: (6 cassettes) 1. Membrane roll 2. Cord, maternal end 3. Cord, end 4. Placental disc, and maternal surfaces 5. Placental disc, and maternal surfaces 6. Placental disc, and maternal surfaces, lesion SJ.mr 07/26/2024 TC:5 CPT: 78328
[2024-07-24] MEDS: Bupivacaine 0.25% 30 ML Vial OPERA.SITE (16:35)
[2024-07-24] MEDS: BUPIVACAINE LIPOSOME/PF 20 ML VIAL OPERA.SITE (16:35)
--- NOTE | 2024-07-24 17:12 | EX.PCM.OBRPT ---
Assessment & Plan (1) Abnormal test: (2) intolerance to labor, delivered, current hospitalization: (3) echogenic intracardiac focus on ultrasound: COMMENT: follow up US in 4 weeks. declines NIPT (4) Obesity affecting : COMMENT: NSTs at 37 weeks. bmi 35 encouarged healthy weight gain (5) Circumvallate placenta: COMMENT: growth us in 4 weeks (6) History of miscarriage: COMMENT: APL panel normal (7) Supervision of high-risk : COMMENT: PRR, , PADMINI 08/08, : [place] (8) : QUALIFIERS: Weeks of gestation: 37 weeks Qualified Code(s): Z3A.37 - 37 weeks gestation of COMMENT: Discussed genetic/carrier testing, normal anatomy Maternal Data Information PADMINI Calculator Estimated Delivery Date Method Current WG Current Estimate 08/08/24 LMP (Certain) 37w 6d Final PADMINI Source: LMP Gestational age: 37 weeks 6 days Operative Report (OB) Cecarean Details Procedure Type: low transverse Surgeon: Ginette Contreras Date of Procedure: 07/24/24 Procedure Start Time: 16:07 Procedure Stop Time: 16:55 Time of Delivery: 16:14 Pre-Operative Diagnosis: Nonreassuring Status and Other ( intolerance to labor, 28 y/o @ 37 weeks 6 days, circumvallate placenta, bpp 4/8) Other Pre-Operative diagnosis: none Post-Operative Diagnosis: Same as Pre-operative diagnosis Classification: FAHAD Type of Anesthesia: Epidural Special Medications: exparel Antibiotic Given: Ancef 2 grams IV x1 and Zithromax 500 mg/5 mL X1 Drain: Bryson to straight drain Estimated Blood Loss: 500cc Findings Description of surgery: The patient is a 28 y/o @ 37 weeks 6 days who presented to L&D for induction of labor for a bpp of 4/8. She progressed to 6 cm and late and variable decelerations started. The pitocin was stopped at 11 am and was unable to be restarted due to continue decelerations and moments of minimal variability. Epidural anesthesia was found to be initially adequate. Bryson catheter was in place. The patient was placed in the dorsal supine position with leftward tilt. Patient was prepped and draped in the normal sterile fashion. Pfannenstiel skin incision was made with the scalpel and carried through to the underlying layer of fascia with the scalpel. Fascia was nicked in the midline and the incision extended laterally. The rectus bellies were dissected off superiorly and inferiorly with out complication both sharply and bluntly. The peritoneum was entered digitally. The incision was stretched and a low transverse uterine incision was made with the scalpel. The infant's head was delivered atraumatically followed by the anterior and posterior shoulders without complication the rest of the infant delivered. The cord was clamped and cut and the was handed off to awaiting nurse. The placenta was delivered spontaneously immediately following and was noted to be intact and have a three-vessel cord. The uterus was exteriorized cleared of all clots and debris, and the incision was closed in a double layer closure using #1 Vicryl and #1 Monocryl. The ovaries and fallopian tubes were noted to be within normal limits. The uterus was returned to the maternal abdomen and gutters were cleared of all clots and debris. The peritoneum was closed with 3-0 Monocryl in a running fashion. The fascia was injected with Exparel + bupivacaine solution (50cc total) Fascia was closed with 0 PDS in a running fashion. Subcutaneous tissue was copiously irrigated and the skin was closed with 3-0 Monocryl in a subcuticular fashion. Mepilex dressing was applied without complication. Patient was taken to recovery in stable condition. Surgical findings: abnormal appearing placenta that appeared dark with irregular borders. Presentation: Vertex Amniotic Membrane Rupture Type: Spontaneous Amniotic Fluid Description: Clear Placenta Disposition: Sent to Pathology (placenta ) Specimen collected: Yes Description of specimen(s) removed: placenta Cord Vessel Description: 3 Vessels Cord Entanglement: None Cord Gases: ABG and VBG A gender: Male (1 minute): 8 (5 minute): 9 Delayed Cord Clamping: Yes Product Safety Compliance Leader boot and saddle repair person: Yes Commutator Assembler: Joe Espinal Tasks completed by teachers' assistant: Closing, Hemostasis: Tie, Hemostasis: Electrocautery, Trocar and Retracting Additional animal assistant?: Yes Additional Tray Line Supervisor #2: stevo watkins MS3 Tasks completed by animal assistant #2: Retracting Complications Complications: No Multi Select Codes Urinary/Genital Urinary/Genital CPT Codes: [address] [facility]
[2024-07-24] MEDS: Oxytocin 15 Units/NS 250ml 15 UNITS/250 ML IV.SOLN 83 UNITS IV (17:15)
[2024-07-24] MEDS: Acetaminophen 500 MG Tablet 1000 MG PO (19:18)
[2024-07-24] MEDS: Ketorolac 30 MG/ML Syringe IV (19:19)
[2024-07-24 23:08] LABS: Pathology Specimen OB SEE PATHOLOGY REPORT
[2024-07-25] MEDS: Ketorolac 30 MG/ML Syringe IV ×2 (01:10→07:22)
[2024-07-25] MEDS: Acetaminophen 500 MG Tablet 1000 MG PO ×4 (01:10→19:00)
[2024-07-25] MEDS: 0.9% Saline Lock 10 ML Syringe IV ×2 (01:11→07:23)
[2024-07-25 01:12] VITALS: BP 117/76; PULSE 90; RESP 16; TEMP 36.9; O2SAT 94
[2024-07-25 04:19] VITALS: BP 118/62; PULSE 81; RESP 16; TEMP 36.6; O2SAT 97
[2024-07-25] MEDS: Enoxaparin 40 MG/0.4 ML Syringe SC (04:27)
[2024-07-25 04:57] LABS: Hematocrit 30.9 % (37-47); Hemoglobin 10.8 g/dL (12.0-15.0); Mean Corpuscular Hgb 31.7 pg (27.0-32.0); Mean Corpuscular Volume 90.6 fL (81-99); Mean Platelet Vol. 10.4 fl (6.2-12.0); Platelet Count 229 K/mm3 (150-450); RBC Distribution Width CV 12.9 % (11.6-14.6); RBC Distribution Width SD 42.2 fl (35.1-43.9); Red Blood Count 3.41 M/mm3 (4.2-5.4); White Blood Count 11.2 K/mm3 (4.4-11.0)
[2024-07-25 08:54] VITALS: BP 121/69; PULSE 61; RESP 16; TEMP 36.4; O2SAT 97
[2024-07-25] MEDS: Senna/Docusate Sodium 1 Tablet PO (09:59)
[2024-07-25 11:35] VITALS: BP 122/73; PULSE 71; RESP 16; TEMP 36.2; O2SAT 98
--- NOTE | 2024-07-25 13:20 | PCM.PN.OB ---
Subjective Subjective Patient is laying in bed comfortably without complaints. She states that she slept on an off during the night. Lochia is mild and pain is minimal. Objective Data Objective Data Vital Signs: Vital Signs Temp Pulse Resp BP Pulse Ox O2 Del Method 97.2 F L 71 16 122/73 H 98 Room Air 07/25/24 11:35 07/25/24 11:35 07/25/24 11:35 07/25/24 11:35 07/25/24 11:35 07/25/24 11:35 Oxygen Delivery Method Room Air Weight: 252 lb Body Mass Index (BMI) 40.6 Intake & Output: Intake and Output for Last 24 Hours 07/23/24 07/24/24 07/25/24 23:59 23:59 23:59 Intake Total 12.5 / 12.5 4762.50 / 4762.50 Output Total 1900 / 1900 800 / 800 Balance 12.5 / 12.5 2862.50 / 2862.50 -800 / -800 Lab / Micro Data 07/25/24 04:39 Labs: Laboratory Results - last 24 hr 07/25/24 04:39: WBC 11.2 H, RBC 3.41 L, Hgb 10.8 L, Hct 30.9 L, MCV 90.6, MCH 31.7, MCHC 35.0, RDW Std Deviation 42.2, RDW Coeff of Toribio 12.9, Plt Count 229, MPV 10.4 ROS Constitutional Constitutional: Reports systems reviewed and no addt'l complaints, except as documented Cardiovascular Cardiovascular: Denies chest pain, dizziness, dyspnea or irregular heart rhythm Respiratory/Chest Respiratory/Chest: Denies cough, pain on inspiration or shortness of breath at rest Gastrointestinal Gastrointestinal: Denies abdominal pain, nausea or vomiting Genitourinary Genitourinary: Denies burning urination Musculoskeletal Musculoskeletal: Denies muscle cramps, muscle spasms or muscle weakness Neurologic Neurologic: Denies confusion, dizziness, headache(s) or lack of coordination Psychiatric Psychiatric: Denies anxiety, behavioral changes or depression Physical Exam HEENT normocephalic Resp normal respiratory effort and normal air movement GI soft to palpation, non-tender and non-distended Rectal Exam: other Other Details: Incision is clean, dry, and intact no CVA tenderness Extremity normal to inspection General Extremity: edema bilateral (trace ) Assessment & Plan (1) Status post section: COMMENT: LTCS Boy JV intolerance PLAN: s/p LTCS PPD # 1 1. routine post care 2. breast feeding- support given 3. rh positive 4. rubella immune
[2024-07-25] MEDS: Ibuprofen 600 MG Tablet PO ×2 (13:40→21:05)
[2024-07-25 16:44] VITALS: BP 133/77; PULSE 62; RESP 16; TEMP 35.9; O2SAT 99
[2024-07-25 20:00] VITALS: BP 130/69; PULSE 65; RESP 16; TEMP 37.3; O2SAT 99
[2024-07-26] MEDS: Acetaminophen 500 MG Tablet 1000 MG PO ×2 (02:02→07:44)
[2024-07-26 02:06] VITALS: BP 128/61; PULSE 67; RESP 16; TEMP 36.1; O2SAT 98
[2024-07-26] MEDS: Ibuprofen 600 MG Tablet PO ×2 (03:50→10:31)
--- NOTE | 2024-07-26 07:14 | PCM.PN.OB ---
Subjective Subjective Patient doing well without complaints. Tolerating PO. Ambulating and voiding without difficulty. feeding well. Denies chest pain, shortness of breath, calf pain/swelling, fevers, chills, lightheadedness. Objective Data Objective Data Vital Signs: Vital Signs Temp Pulse Resp BP Pulse Ox O2 Del Method 97.0 F L 67 16 128/61 H 98 Room Air 07/26/24 02:06 07/26/24 02:06 07/26/24 02:06 07/26/24 02:06 07/26/24 02:06 07/26/24 02:06 Oxygen Delivery Method Room Air Weight: 252 lb Body Mass Index (BMI) 40.6 Intake & Output: Intake and Output for Last 24 Hours 07/24/24 07/25/24 07/26/24 23:59 23:59 23:59 Intake Total 4762.50 / 4762.50 Output Total 1900 / 1900 1100 / 1100 Balance 2862.50 / 2862.50 -1100 / -1100 Lab / Micro Data 07/25/24 04:39 ROS Constitutional Constitutional: Reports systems reviewed and no addt'l complaints, except as documented Cardiovascular Cardiovascular: Reports systems reviewed and no addt'l complaints, except as documented Respiratory/Chest Respiratory/Chest: Reports systems reviewed and no addt'l complaints, except as documented Gastrointestinal Gastrointestinal: Reports systems reviewed and no addt'l complaints, except as documented Physical Exam Const alert, oriented x3 and no apparent distress HEENT Head and Scalp: atraumatic Resp normal respiratory effort GI soft to palpation and non-tender Inspection: incision intact, healing well and drainage (none) Bimanual Exam - Vag & Uterus: uterus non-tender Uterus Palpation: uterus fundus firm (below Umbilicus) Assessment & Plan (1) Status post section: COMMENT: LTCS Boy JV intolerance PLAN: Plan s/p LTCS PPD # 2 1. routine post care 2. breast feeding- support given 3. rh positive 4. rubella immune
--- NOTE | 2024-07-26 07:17 | DCINST_ITS ---
Discharge Instructions Diet Discharge Diet: No restrictions Activity Discharge Activity: May Not Drive (for 2 weeks or while taking narcotic pain medications.), May Shower and May Take a Tub Bath (in 7 days) May shower in (days): 0 May resume sexual activity in: 4-6 weeks Weight Bearing Status: Full weight bearing Lifting Restrictions: 20 pounds Dressing / Incision Call your doctor if your incision/area has: Continuous Slow Oozing, Sudden Increased Bleeding, Increased Pain/ Swelling, Increased Redness and Foul Smelling Discharge Call your doctor if you observe: Fever of 101 or Higher and Using more than 1 pad per hour (for 2 hours) Suture Line Care: Avoid Pulling/Pushing and Avoid Pinching/Bending Cleanse incision/area with: Soap & Water and Keep Dressing Clean & Dry Follow Up Care Please Follow Up With: Uzma Parsons MD When: Call [phone] to make an appointment for an incision check in 1-2 weeks. Test Results: Test results from this visit will be discussed in further detail at your follow- up appointment, if applicable. Discharge Plan Admission Admit Date/Time: 07/23/24 15:50 Primary Reason for Your Visit: section Attending Provider: Ginette Contreras Primary Care Provider: Care Physician,No Primary Instructions Patient Instructions: Kick Counts, ED False Labor, OB Triage: Return to Hospital or Notify Physician if you Experience: Additional Instructions / Restrictions: Report any decreased movement tomorrow or the following day. If no decreased movement noted, follow up in the office as scheduled. Discharge Orders/Prescriptions Prescriptions: New ibuprofen 800 mg tablet 800 mg PO Q8H PRN (Reason: pain) Qty: 30 0RF oxycodone-acetaminophen [Percocet] 5-325 mg tablet 1 tab PO Q4H PRN (Reason: pain) 7 Days Qty: 20 0RF Rx Instructions: 1-2 tabs q 4 hrs as needed for pain No Action PNV #[id number] 30 mg iron-10 mg iron-1 mg capsule 1 cap PO DAILY pyridoxine (vitamin B6) 100 mg tablet 100 mg PO DAILY Referrals / Follow Up: Care Physician,No Primary [Primary Care Provider] - Disposition Disposition (needs filled in before D/C Order can be placed): Home, Self Care
--- NOTE | 2024-07-26 07:19 | PCM.DC.SUM ---
Providers Date of Admission: 07/23/24 Primary Care Physician: No Primary Care Phys Reason For Visit: PRIMARY Diagnosis Discharge Diagnosis (1) Status post section: Status: Acute Code(s): Z98.891 - History of uterine scar from previous surgery Plan s/p LTCS PPD # 2 1. routine post care 2. breast feeding- support given 3. rh positive 4. rubella immune Medications at Discharge Home Medications vitamin#30 30 mg iron-10 mg iron-folic acid 1 mg-omg3 capsule 1 cap PO DAILY 12/16/23 pyridoxine (vitamin B6) 100 mg tablet 100 mg PO DAILY 07/23/24 ibuprofen 800 mg tablet 800 mg PO Q8H PRN pain #30 tabs 07/24/24 oxycodone-acetaminophen 5 mg-325 mg tablet (Percocet) 1 tab PO Q4H PRN pain 7 days #20 tabs 07/24/24 Hospital Course Summary of Care Provided Hospital Course: patient presented for IOL secondary to 12/25 bpp. underwent IOL with cytotec then fb and pitocin, she developed recurrent decels at 6 cm and necesseitated a c section for cat II persistent tracing remote from delivery. Postoperatively patient had return of bowel and bladder function and was ambulating well, tolerating adequate p.o., and was stable for discharge to home on postop day #2. Discharge medications naproxen and Percocet. Follow-up in office in 2 weeks for incision check in 6 weeks for visit. Routine post section diet and activity instructions. Weight / BMI Weight Weight: 252 lb Body Mass Index (BMI) 40.6 ABG / Lab / Microbiology Data 07/25/24 04:39 D/C Instructions Discharge Diet: No restrictions Discharge Activity: May Not Drive (for 2 weeks or while taking narcotic pain medications.), May Shower and May Take a Tub Bath (in 7 days) May shower in (days): 0 May resume sexual activity in: 4-6 weeks Weight Bearing Status: Full weight bearing Call your doctor if your incision/area has: Continuous Slow Oozing, Sudden Increased Bleeding, Increased Pain/ Swelling, Increased Redness and Foul Smelling Discharge Call your doctor if you observe: Fever of 101 or Higher and Using more than 1 pad per hour (for 2 hours) Suture Line Care: Avoid Pulling/Pushing and Avoid Pinching/Bending Cleanse incision/area with: Soap & Water and Keep Dressing Clean & Dry Please Follow Up With: Uzma Parsons MD When: Call [phone] to make an appointment for an incision check in 1-2 weeks. Meaningful Use Info Meaningful Use Meaningful Use Diagnoses (Choose all that apply): None applicable Ischemic Stroke Statin Dosing Therapy Reference: STATIN DOSE THERAPY REFERENCE: * Patients > 75 years receive moderate or high dose statin therapy. * Patients 75 years or YOUNGER should receive HIGH intensity statin dose unless contraindicated. You will be required to document reason for non-treatment if statin daily dose does not meet guidelines. HIGH DOSE STATIN THERAPY DAILY Atorvastatin > than or = to 40 mg Rosuvastatin > than or = to 20 mg Amlodipine + Atorvastatin > than or = to 2.5/40 mg Ezetimibe + Simvastatin 10/80 mg Simvastatin 80mg Discharge Plan Admission Admit Date/Time: 07/23/24 15:50 Primary Reason for Your Visit: section Attending Provider: Ginette Contreras Primary Care Provider: Care Physician,No Primary Instructions Patient Instructions: Kick Counts, ED False Labor, OB Triage: Return to Hospital or Notify Physician if you Experience: Additional Instructions / Restrictions: Report any decreased movement tomorrow or the following day. If no decreased movement noted, follow up in the office as scheduled. Discharge Orders/Prescriptions Prescriptions: New ibuprofen 800 mg tablet 800 mg PO Q8H PRN (Reason: pain) Qty: 30 0RF oxycodone-acetaminophen [Percocet] 5-325 mg tablet 1 tab PO Q4H PRN (Reason: pain) 7 Days Qty: 20 0RF Rx Instructions: 1-2 tabs q 4 hrs as needed for pain No Action PNV #[id number] 30 mg iron-10 mg iron-1 mg capsule 1 cap PO DAILY pyridoxine (vitamin B6) 100 mg tablet 100 mg PO DAILY Referrals / Follow Up: Care Physician,No Primary [Primary Care Provider] - Disposition Disposition (needs filled in before D/C Order can be placed): Home, Self Care
[2024-07-26 08:00] VITALS: BP 128/75; PULSE 66; RESP 16; TEMP 36.2
[2024-07-26] MEDS: Enoxaparin 40 MG/0.4 ML Syringe SC (10:30)
--- NOTE | 2024-08-06 13:14 | CASEMGMT ---
Social Work Assessment Labor and Delivery Unit Patient Address:[address] [place] [address] [address], [place] [address] Phone number: [phone] Date of Referral: 07/24/24 Time of Referral:? 724 Referred By: Dr. Parsons Date of Intervention: ??07/24/24 Time of Intervention:? 1449 Reason for Referral:? anxiety and depression Sw completed chart review and acknowledges social work consult due to maternal mental health history positive for anxiety and depression. Sw presented to bedside and introduced self to mother of baby (MOB- Zahra) and father of baby (FOB- Franklin). Sw explained reason for sw involvement and completed psychosocial assessment. History obtained from: medical records, MOB, and FOB Household composition: Currently residing in the family home is MOB, FOB and baby when ready for discharge. Parents deny any issues or concerns with housing, reporting it to be safe and secure. Patient's parent/guardian status:? ?LUCAS states that she and CLAUDIO have been together for 10 years after starting to date each other in high school. 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 No concerns reported of domestic violence or intimate partner violence. Medical History: ?LUCAS is 28 year old female who is 1, para 0- now 1 following labor and delivery of . LUCAS received routine care with [facility] throughout . LUCAS presented to hospital due to decreased movement, MOB required emergency and delivered baby on 07/24/24 at 37 weeks gestation. Baby boy, named Suly Hart, was born weighing 7lb 13oz with apgars of 8 and 9 at one and five minutes of life, respectfully. LUCAS states that she is breast feeding and so far it is going okay. Baby will be followed by Dr. Malagon for pediatrics. Educational Status:? Both parents graduated from high school. MOB obtained her associates degree. No concerns with reading, learning or comprehension. Financial Status: Both parents are gainfully employed outside of the home. FOB works as a machine clipper. 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 Infant Supplies: Parents have obtained all necessary baby supplies, including: car seat, safe sleep space, clothes, diapers and wipes. Childcare/Caregiver(s):? MOB will be the primary caregiver, along with grandparents when parents have to work. 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 No barriers. Programs/Agencies Involved: ???Parents are not connected to any community agencies that assist them financially as they are over income. LUCAS is connected to a counselor at [facility] who she states she is able to reach out to at anytime. Children Services/Legal Issues:???No history of children services involvement. NO issues or concerns warranting referral to be made at this time. Behavioral Health Issues: ??Mental Health History: CLAUDIO denies mental health history. LUCAS states that she has history of anxiety and depression. LUCAS states that it was really challenging when her grandma passed. LUCAS states that she is not prescribed any medications to help her manage her mental health, however her counselor is a really good resource for her. ?MOB states that even though her delivery was not the outcome that she anticipated, she is happy she and baby are healthy. ?? Substance Use History:?Parents deny substance use prior to and during . ? Family History:??Parents deny family history of substance use/ addiction or significant mental health diagnoses. ??? Drug Screens: No drug screens observed in chart review. Family/Social Stressors:? Parents deny any issues, concerns or stressors at this time. Support Systems: LUCAS identifies that CLAUDIO is her biggest support person. Depression/Shaken Baby/Safe Sleeping: Guillermo educated parents on signs and symptoms of baby blues and mood and anxiety disorders to be mindful of. Guillermo explained that due to LUCAS's mental health history being positive for anxiety and depression she is more at risk for experiencing symptoms. Parents express understanding. CLAUDIO states that he would be able to recognize if MOB were struggling. Guillermo also educated parents that fathers are also experiencing symptoms, and due to infertility issues and a traumatic and unexpected delivery it may be normal for CLAUDIO to also experience some anxiety or depression. Parents express understanding. LUCAS encouraged to stay in contact with her counselor at [facility]. Guillermo educated parents on shaken baby prevention and ABCs of safe sleep. Parents express understanding. ASSESSMENT:? MOB and baby admitted following labor and delivery. MOB welcoming of meeting with sw to complete assessment. MOB open and talkative regarding her mental health history and scary delivery. FOB also present, engaged in completion of assessment, but was more quiet, and observed to still be processing the delivery and process to becoming parents. MOB open about losses she has experienced along with her infertility journey and how those have contributed to her mental health. Parents willing to learn more about mood and anxiety disorders. Parents observed to be strong supports to one another. All necessary baby items received and natural supports available. PLAN:?? No other services requested or indicated. MOB and baby to be discharged when medically ready. Parents were provided literature regarding: signs and symptoms of baby blues and mood and anxiety disorders, Help Me Grow, shaken baby prevention, ABCs of safe sleep and a list of county resources that are available for them should any needs present themselves. Virgil Zepeda, CIVIL ENGINEERING SPECIALIST, HEAD TRANSFER CLERK
== END 2024-07-26 14:30 | disposition home or self-care (01) | DRG 788 ==
PROVIDERS: Obstetrics & Gynecology; Admitting Provider Obstetrics & Gynecology; Referring Provider Obstetrics & Gynecology; Visit Provider Obstetrics & Gynecology
DX: O36.8130 Decreased fetal movements, third trimester, not applicable or unspecified (principal); O99.214 Obesity complicating childbirth; O43.113 Circumvallate placenta, third trimester; O62.0 Primary inadequate contractions; O76 Abnormality in fetal heart rate and rhythm complicating labor and delivery; Z3A.37 37 weeks gestation of pregnancy; Z37.0 Single live birth
CPT/HCPCS: 59025; 59050; 76819; 85025; 85027; 86780; 86850; 86900; 86901; 88307; 99221; J7030; J7120; A4216; G0378; J2405